=== PATIENT | male | born 1940 | race Caucasian/White ===

== ENCOUNTER 2021-07-02 08:28 | Inpatient (IN) | payer OTHER ==
[2021-07-02 09:19] LABS: Absolute Lymphocytes (CBC) 0.6 K/uL (0.7-4.9); Basophils % 0.7 % (0-1.3); Hematocrit 40.1 % (39.6-49.0); Lymphocytes % 15.9 % (15.3-44.8)
[2021-07-02 09:25] LABS: Protime INR 0.97
[2021-07-02 09:47] LABS: ALT/SGPT 28 U/L (12-78); AST/SGOT 25 U/L (15-37); Albumin 3.2 g/dL (3.4-5.0); Alkaline Phosphatase 186 U/L (45-117); BUN Blood Urea Nitrogen 16 mg/dL (7-18); Bicarbonate 32 mmol/L (21-32); Bilirubin Direct 0.2 mg/dL (0-0.2); Bilirubin Total 0.6 mg/dL (0.2-1.0); Glucose Level 103 mg/dL (74-106); Magnesium 2.1 mg/dL (1.8-2.4); NT PRO-BNP 1842 pg/mL (<450); Potassium 4.9 mmol/L (3.5-5.1); Protein, Total 7.8 g/dL (6.4-8.2); Sodium Level 141 mmol/L (136-145); Troponin (Emerg Dept Use Only) < 0.02 ng/mL (0.0-0.045)
[2021-07-02] MEDS ORDERED: FUROSEMIDE 20 MG/ 2ML VIAL ONE (10:35)
--- NOTE | 2021-07-02 11:18 | RAD REPORT ---
EXAM DESCRIPTION: Zaina Single View07/02/2021 9:59 am CLINICAL HISTORY: sob COMPARISON: none FINDINGS: Small to moderate bilateral pleural effusions. Bilateral pulmonary opacities. Cardiomegaly IMPRESSION: These findings probably represent CHF
--- NOTE | 2021-07-02 12:09 | ER ---
Nurse's Notes [facility] Name: Chalo Benitez Age: 80 yrs Sex: Male : 1940 Arrival Date: 07/02/2021 Time: 08:30 Bed 6 Private MD: Diagnosis: Pleural effusion, not elsewhere classified;Unspecified combined systolic (congestive) and diastolic (congestive) heart failure;Chronic atrial fibrillation Presentation: 07/02 08:36 Chief complaint: EMS states: [facility] toned out for SOB, rapid HR, and ll3 hyperventilation. Coronavirus screen: Vaccine status: Patient reports receiving the 2nd dose of the covid vaccine. Client denies travel out of the [place] in the last 14 days. At this time, the client does not indicate any symptoms associated with coronavirus-19. Ebola Screen: No symptoms or risks identified at this time. Initial Sepsis Screen: Does the patient meet any 2 criteria? RR > 20 per min. No. Patient's initial sepsis screen is negative. Does the patient have a suspected source of infection? No. Patient's initial sepsis screen is negative. Risk Assessment: Do you want to hurt yourself or someone else? Patient reports no desire to harm self or others. Onset of symptoms was July 02, 2021. Care prior to arrival: Oxygen administered. via nasal cannula, 2 LPM. Transition of care: patient was received from another setting of care (long-term care facility), [facility]. 08:36 Method Of Arrival: EMS: [facility] ll3 08:36 Acuity: ROSSANA 2 ll3 Triage Assessment: 08:52 General: Appears in no apparent distress. comfortable, Behavior is calm, cooperative. ll3 Pain: Denies pain. 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 - Social history:: Smoking status: Patient/guardian denies using tobacco. Screenin:51 Abuse screen: Denies threats or abuse. Nutritional screening: No deficits noted. ll3 Tuberculosis screening: No symptoms or risk factors identified. Fall Risk Fall in past 12 months (25 points). Secondary diagnosis (15 points) impaired mobility, CVA, IV access (20 points). Ambulatory Aid- Crutches/Cane/Walker (15 pts). Gait- Weak (10 pts.). Mental Status- Oriented to own ability (0 pts). Assessment: 09:00 General: SEE TRIAGE NOTE. bp 10:00 Reassessment: No changes from previously documented assessment. Patient and/or family bp updated on plan of care and expected duration. Pain level reassessed. Respiratory: Airway is patent Respiratory effort is shallow, Respiratory pattern is tachypnea. 11:00 Reassessment: No changes from previously documented assessment. Patient and/or family bp updated on plan of care and expected duration. Pain level reassessed. 11:30 Reassessment: PROVIDER AT B/S. bp Vital Signs: 08:36 BP 142 / 66; Pulse 93; Resp 32; Temp 97.6; Pulse Ox 98% on R/A; Weight 63.5 kg; Height ll3 5 ft. 11 in. (180.34 cm); 08:58 BP 138 / 76; Pulse 82; Resp 25; Pulse Ox 96% on R/A; Pain 0/10; jl7 10:00 BP 131 / 65; Pulse 81; Resp 28; Pulse Ox 97% ; bp 11:00 BP 136 / 71; Pulse 80; Resp 20; Pulse Ox 98% ; bp 13:00 BP 118 / 84; Pulse 77; Resp 19; Pulse Ox 98% ; kd3 13:55 BP 110 / 60; Pulse 88; Resp 19; Pulse Ox 97% ; kd3 08:36 Body Mass Index 19.52 (63.50 kg, 180.34 cm) ll3 ED Course: 08:30 Patient arrived in ED. em1 08:36 Vu Lerma PA is PHCP. cp 08:36 Martin De La Torre MD is Attending Physician. cp 08:44 Triage completed. ll3 08:51 Patient has correct armband on for positive identification. Fall risk band placed. ll3 Placed in gown. Bed in low position. Call light in reach. Side rails up X 1. 08:58 EKG done, by ED staff, reviewed by Vu HERNANDEZ. jl7 09:14 Jesse Aquino, RN is Primary Nurse. bp 09:59 XRAY Chest (1 view) In Process Unspecified. EDMS 12:07 Manfred Oliveira MD is Hospitalizing Provider. cp 13:55 No provider procedures requiring assistance completed. Patient admitted, IV remains in kd3 place. Administered Medications: 10:45 Drug: Lasix (furosemide) 20 mg Route: IVP; Site: right antecubital; kd3 13:17 Follow up: Response: No adverse reaction kd3 Outcome: 12:08 Decision to Hospitalize by Provider. cp 13:55 Admitted to Med/surg accompanied by tech, via wheelchair, room 202, with chart. kd3 13:55 Condition: stable 13:55 Instructed on the need for admit. 16:24 Patient left the ED. ss Signatures: Dispatcher [employer] EDMS Jacob Wayne em1 Ellie Philip RN RN ss Vu Lerma PA PA cp Ashutosh Carlos RN RN jl7 Jesse Aquino, Madhu Petit RN, RN RN ll3 Jenny Greene, RN RN kd3
--- NOTE | 2021-07-02 12:10 | EDPHYS ---
Physician Documentation [facility] Name: Chalo Benitez Age: 80 yrs Sex: Male : 1940 Arrival Date: 07/02/2021 Time: 08:30 Bed 6 Private MD: ED Physician Martin De La Torre HPI: 07/02 08:45 This 80 yrs old Male presents to ER via EMS with complaints of Shortness Of Breath. cp 08:45 The patient has shortness of breath at rest. cp 08:45 Onset: The symptoms/episode began/occurred gradually. Duration: The symptoms are cp intermittent. Associated signs and symptoms: Pertinent positives: chest pain, Pertinent negatives: fever. 08:45 Severity of symptoms: in the emergency department the symptoms have improved moderately.cp Historical: - Allergies: 08:44 Codeine; ll3 08:44 PENICILLINS; ll3 08:44 Sulfa (Sulfonamide Antibiotics); ll3 - Home Meds: 08:44 Plavix 75 mg Oral tab once daily [Active]; digoxin 125 mcg (0.125 mg) Oral tab 2 tabs ll3 once daily [Active]; Lovenox 40 mg/0.4 mL Sub-Q syrg once daily [Active]; metoprolol tartrate 25 mg Oral tab 0.5 tab once daily [Active]; mirtazapine 15 mg Oral tab once daily [Active]; omeprazole 20 mg Oral cpDR once daily [Active]; sennosides 8.6 mg oral cap [Active]; - PMHx: 08:44 COPD; Hypertensive disorder; 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 - Social history:: Smoking status: Patient/guardian denies using tobacco. ROS: 08:50 Respiratory: Positive for shortness of breath, at rest. cp 08:50 Cardiovascular: Positive for chest pain, Negative for edema, palpitations. cp 08:50 Constitutional: Negative for body aches, chills, fever, poor PO intake. cp 08:50 Abdomen/GI: Negative for abdominal pain, nausea, vomiting, and diarrhea, constipation, black/tarry stool, rectal bleeding. 08:50 Neuro: Negative for altered mental status, dizziness, headache, syncope, weakness. cp 08:50 All other systems are negative. Exam: 08:55 Constitutional: The patient appears in no acute distress, alert, awake, cp non-diaphoretic, non-toxic, well developed, well nourished. 08:55 Head/Face: Normocephalic, atraumatic. cp 08:55 Eyes: Periorbital structures: appear normal, Conjunctiva: normal, no exudate, no injection, Sclera: no appreciated abnormality, Lids and lashes: appear normal, bilaterally. 08:55 ENT: External ear(s): are unremarkable, Nose: is normal, Mouth: Lips: moist, Oral mucosa: pink and intact, moist, Posterior pharynx: Airway: no evidence of obstruction, patent. 08:55 Neck: ROM/movement: is normal, is supple, without pain, no range of motions limitations. 08:55 Chest/axilla: Inspection: normal, Palpation: is normal, no crepitus, no tenderness. 08:55 Cardiovascular: Rate: normal, Rhythm: regular, Edema: ankle edema, that is very mild, JVD: is not appreciated. 08:55 Respiratory: the patient does not display signs of respiratory distress, Respirations: normal, no use of accessory muscles, no retractions, Breath sounds: decreased breath sounds, that are moderate, are located in both bases, wheezing: is not appreciated. 08:55 Abdomen/GI: Inspection: abdomen appears normal, Palpation: abdomen is soft and non-tender, in all quadrants. 08:55 Back: pain, is absent, ROM is normal. 08:55 Skin: cellulitis, is not appreciated, no rash present. 08:55 Neuro: Orientation: to person, place \T\ time. Mentation: is normal, Motor: moves all fours, strength is normal, Sensation: is normal. 09:01 ECG was reviewed by the Attending Physician. Vital Signs: 08:36 BP 142 / 66; Pulse 93; Resp 32; Temp 97.6; Pulse Ox 98% on R/A; Weight 63.5 kg; Height ll3 5 ft. 11 in. (180.34 cm); 08:58 BP 138 / 76; Pulse 82; Resp 25; Pulse Ox 96% on R/A; Pain 0/10; jl7 10:00 BP 131 / 65; Pulse 81; Resp 28; Pulse Ox 97% ; bp 11:00 BP 136 / 71; Pulse 80; Resp 20; Pulse Ox 98% ; bp 13:00 BP 118 / 84; Pulse 77; Resp 19; Pulse Ox 98% ; kd3 13:55 BP 110 / 60; Pulse 88; Resp 19; Pulse Ox 97% ; kd3 08:36 Body Mass Index 19.52 (63.50 kg, 180.34 cm) ll3 MDM: 08:40 Patient medically screened. 11:30 Data reviewed: vital signs, nurses notes, lab test result(s), EKG, radiologic studies, cp plain films, I have discussed the patient's presentation/case with the attending Emergency Department Physician;. 11:30 Test interpretation: by ED physician or midlevel provider: ECG, plain radiologic cp studies. 11:30 Physician consultation: Manfred Oliveira MD was called at 11:30, was contacted at 11:30, regarding admission, to the telemetry unit. patient's condition. 07/02 08:42 Order name: Basic Metabolic Panel; Complete Time: 09:52 07/02 08:42 Order name: CBC with Diff; Complete Time: 09:36 07/02 09:36 Interpretation: Normal except: WBC 3.60; RBC 4.30; HGB 13.1; RDW 17.3; MPV 7.0; LYMA cp 0.6. 07/02 08:42 Order name: LFT's; Complete Time: 09:52 07/02 09:53 Interpretation: Normal except: ALK 186; ALB 3.2; GLOB 4.6; A/G 0.7. 07/02 08:42 Order name: Magnesium; Complete Time: 09:52 07/02 08:42 Order name: NT PRO-BNP; Complete Time: 09:52 07/02 11:25 Interpretation: Abnormal: NT PRO-BNP 1842. 07/02 08:42 Order name: PT-INR; Complete Time: 09:36 07/02 09:37 Interpretation: Reviewed. 07/02 08:42 Order name: Troponin (emerg Dept Use Only); Complete Time: 09:52 07/02 08:42 Order name: Digoxin; Complete Time: 09:52 07/02 11:35 Order name: SARS-COV-2 RT PCR EDMS 07/02 13:47 Order name: CKMB Creatine Kinase MB EDWA 07/02 13:47 Order name: CKMB Creatine Kinase MB EDWA 07/02 13:47 Order name: Comprehensive Metabolic Panel EDWA 07/02 13:47 Order name: Magnesium EDWA 07/02 08:42 Order name: XRAY Chest (1 view); Complete Time: 11:21 cp 07/02 08:42 Order name: EKG; Complete Time: 08:43 cp 07/02 08:42 Order name: Cardiac monitoring; Complete Time: 08:58 cp 07/02 12:01 Order name: Diet 2 Gm Sodium; Complete Time: 12:02 em1 07/02 13:47 Order name: CKMB Creatine Kinase MB EDWA 07/02 13:47 Order name: CKMB Creatine Kinase MB EDWA 07/02 13:47 Order name: Creatine Phosphokinase EDWA 07/02 13:47 Order name: Creatine Phosphokinase EDWA 07/02 13:47 Order name: Creatine Phosphokinase [facility] 07/02 13:48 Order name: Creatine Phosphokinase [facility] 07/02 13:48 Order name: Troponin I EDWA 07/02 13:48 Order name: Physical Therapy Consult EDWA 07/02 13:48 Order name: 60g Consistent Carbohydrate (ADA 1800/2000) EDWA 07/02 13:48 Order name: Echo with Doppler EDWA 07/02 13:48 Order name: CBC with Automated Diff EDWA 07/02 08:42 Order name: EKG - Nurse/Tech; Complete Time: 08:58 07/02 08:42 Order name: IV Saline Lock; Complete Time: 09:14 07/02 08:42 Order name: Labs collected and sent; Complete Time: 09:14 07/02 08:42 Order name: O2 Per Protocol; Complete Time: 08:58 cp 07/02 08:42 Order name: O2 Sat Monitoring; Complete Time: 08:58 cp EC:01 Rate is 90 beats/min. Rhythm is irregular. QRS interval is normal. QT interval is cp normal. T waves are Inverted in lead aVR. Interpreted by me. Reviewed by me. Administered Medications: 10:45 Drug: Lasix (furosemide) 20 mg Route: IVP; Site: right antecubital; kd3 13:17 Follow up: Response: No adverse reaction kd3 Disposition: 13:00 Chart complete. cp 17:23 Co-signature as Attending Physician, Martin De La Torre MD I agree with the assessment and kdr plan of care. Disposition Summary: 07/02/21 12:08 Hospitalization Ordered Hospitalization Status: Inpatient Admission cp Provider: Manfred Oliveira cp Location: Telemetry/MedSurg (Inpatient) cp Condition: Stable cp Problem: new cp Symptoms: have improved cp Bed/Room Type: Standard cp Room Assignment: 202(07/02/21 13:54) ss Diagnosis - Pleural effusion, not elsewhere classified cp - Unspecified combined systolic (congestive) and diastolic (congestive) heart failure cp - Chronic atrial fibrillation cp Forms: - Medication Reconciliation Form cp - SBAR form cp Signatures: Dispatcher [employer] EDWA Martin De La Torre MD MD [facility] Ellie Philip RN RN ss Vu Lerma PA PA cp Madhu Garcia RN RN ll3 Jenny Greene RN RN kd3 Corrections: (The following items were deleted from the chart) 11:35 08:43 CORONAVIRUS+MR.LAB.BRZ ordered. EDWA EDMS 13:54 12:08 cp ss
[2021-07-02] MEDS ORDERED: ACETAMINOPHEN 500 MG TAB PO PRN (13:29)
[2021-07-02] MEDS ORDERED: ONDANSETRON 4 MG/2 ML VIAL IV PRN (13:29)
[2021-07-02] MEDS: ALBUTEROL 2.5 MG/3 ML NEB SOL NEB SCH ×2 (14:00→19:45)
[2021-07-02] MEDS: IPRATROPIUM BROM 0.5MG/2.5ML NEB SCH ×2 (14:00→19:45)
[2021-07-02 14:27] LABS: Absolute Lymphocytes (CBC) 0.4 K/uL (0.7-4.9); Basophils % 0.6 % (0-1.3); Hematocrit 37.2 % (39.6-49.0); Lymphocytes % 8.7 % (15.3-44.8); MPV 6.8 fL (7.6-11.3); RBC Red Blood Cell Count 3.97 M/uL (4.33-5.43)
[2021-07-02] MEDS: ENOXAPARIN 40 MG/0.4 ML SQ SCH (15:00)
[2021-07-02 15:13] LABS: Creatine Phosphokinase 24 U/L (39-308); Troponin I < 0.02 ng/mL (0.0-0.045)
[2021-07-02 15:15] LABS: ALT/SGPT 26 U/L (12-78); AST/SGOT 21 U/L (15-37); Albumin 2.7 g/dL (3.4-5.0); Alkaline Phosphatase 159 U/L (45-117); BUN Blood Urea Nitrogen 16 mg/dL (7-18); Bicarbonate 33 mmol/L (21-32); Bilirubin Total 0.4 mg/dL (0.2-1.0); Glucose Level 153 mg/dL (74-106); Potassium 3.7 mmol/L (3.5-5.1); Protein, Total 6.8 g/dL (6.4-8.2); Sodium Level 141 mmol/L (136-145)
--- NOTE | 2021-07-02 15:27 | HP ---
Date of Admission: 07/02/2021 Reason For Admission: Progressive shortness of breath. History Of Present Illness: This is an 80-year-old gentleman with history of COPD/tobacco abuse, pre sented to the emergency room from longterm with progressive shortness of breath. This started th is morning. The patient denies any cough, sore throat. There was no fever or chills, night sweats. The patient was very tachycardic in the ER. Chest x-ray done showed volume overload with signs of c ongestive heart failure. Labs showed a mild anemia with elevated BNP at 1842. The patient was found to have history of CHF, started on Lasix and admitted for further evaluation. , but he lo oks comfortable. He has no chest pain or abdominal pain. No fever or chills. Past Medical History: Significant for hypertension, carotid artery stenosis, atrial fibrillation, GE RD, stroke. Past Surgical History: Significant for none according to the patient. Allergies: TO SULFA, CODEINE AND PENICILLIN. Home Medications: Plavix 75 mg once a day, digoxin mcg daily 2 tablets a day, subcutaneous, metoprolol 25 mg half tablet once a day. Mirtazapine 15 mg orally. Omeprazole 20 mg o rally. Senokot as needed. Social History: He is . He has 3 kids, all . He lives in longterm. Does not drink, smoke, or use any drugs. Family History: Father of unknown etiology. Mother when the patient was 1-year-old. Review of Systems: Denies any fever, chills, night sweats, dizziness, lightheaded, headache, blurred vision. There is n o change in weight or appetite. He has shortness of breath, but there is no cough or sore throat. T here is no nausea, vomiting, abdominal pain, change in bowel movement, diarrhea, constipation, dysuri a, frequency, urgency, hematuria. There is no history of depression, anxiety, seizure or stroke. Physical Examination: Vital Signs: Currently blood pressure is 142/66, respiratory rate 20, pulse 80, temperature 97.6, sa turating 98% on room air. General: He is alert and oriented x3. Does not look in any distress. HEENT: Atraumatic, normocephalic. PERRLA. Oral mucosa is moist. Neck: Supple. No JVD. No carotid bruits. Chest: Clear to auscultation. Good air entry. There is some expiratory wheezing with crackles in t he bases. Heart: Regular rate and rhythm. S1, S2 normal. No gallop, rub or murmur. Abdomen: Soft, nontender. No masses. No hepatosplenomegaly. Positive bowel sounds. Extremities: No clubbing, cyanosis, or edema. No calf tenderness. Neurologic: Grossly intact. Cranial nerve exam 2 through 12 intact. Normal sensation. Normal refl exes. Normal muscle strength. Laboratory Data: Today showed CBC was normal except for mild anemia with hemoglobin 13.1, white bloo d cell 3.6. Chemistry within normal except for alkaline phosphatase 186. BNP of 1842, albumin 3.2. Assessment And Plan: This is an 80-year-old gentleman with history of multiple medical problems, pre sented to the emergency room with progressive shortness of breath, found to have signs of congestive heart failure on the chest x-ray with elevated BNP. 1.CHF ? new onset. We will proceed with echocardiogram. We will continue the patient on Lasix 40 m g twice a day. We will consult Cardiology. Resume the patient's home medication with Plavix, metopr olol and digoxin. We will check cardiac enzymes. 2.Chronic obstructive pulmonary disease history ? chronic obstructive pulmonary disease exacerbation . We will start the patient on steroid, prednisone 60 mg once a day, nebulizer as well as Levaquin 5 00 mg daily for presumed chronic obstructive pulmonary disease exacerbation. 3.History of vascular disease. We will continue the patient on Plavix. 4.We will look at echocardiogram given the possibility of new onset of congestive heart failure. 5.History of cerebrovascular accident. The patient is already on Plavix. We will continue. 6.We will continue omeprazole for acid reflux. 7.Insomnia. We will continue the patient on mirtazapine. FRANCISCO/NINI Voice ID: [id number]
[2021-07-02] MEDS: levoFLOXacin 500 MG TAB PO SCH (18:01)
[2021-07-02] MEDS: FUROSEMIDE 40 MG TABLET PO SCH (18:02)
[2021-07-02] MEDS ORDERED: predniSONE 20 MG TAB PO ONE (19:26)
[2021-07-02] MEDS: METOPROLOL TAR 25 MG TAB PO SCH (20:41)
[2021-07-02 22:13] LABS: CKMB Creatine Kinase MB 1.5 ng/mL (1.0-3.6)
[2021-07-03] MEDS: IPRATROPIUM BROM 0.5MG/2.5ML NEB SCH ×4 (01:40→20:00)
[2021-07-03] MEDS: ALBUTEROL 2.5 MG/3 ML NEB SOL NEB SCH ×4 (01:40→20:00)
[2021-07-03 07:37] LABS: CKMB Creatine Kinase MB 1.4 ng/mL (1.0-3.6)
[2021-07-03] MEDS: ENOXAPARIN 40 MG/0.4 ML SQ SCH (08:29)
[2021-07-03] MEDS: ASPIRIN EC 81 MG TAB PO SCH (08:29)
[2021-07-03] MEDS: FUROSEMIDE 40 MG TABLET PO SCH (08:30)
[2021-07-03] MEDS: levoFLOXacin 500 MG TAB PO SCH (08:30)
[2021-07-03] MEDS: METOPROLOL TAR 25 MG TAB PO SCH (08:30)
[2021-07-03] MEDS ORDERED: CLOPIDOGREL 75 MG TABLET PO SCH (09:00)
[2021-07-03] MEDS ORDERED: PNEUMOCOCCAL VACCINE 0.5 ML IMVAC ONE (09:00)
--- NOTE | 2021-07-03 11:46 | P.PN ---
Subjective Date of Service: 07/03/21 Not feeling well this am, tired weak, fatigue poor energy, nl BM, no fever or chills but having dizziness, daughter at the bedside Physical Examination - Vital Signs Temperature: 97 F Blood Pressure: 113/49 Pulse: 76 Respirations: 18 Pulse Ox (%): 96 - Studies Laboratory Data (last 24 hrs) 07/02/21 14:22: Sodium 141, Potassium 3.7, BUN 16, Creatinine 0.61, Glucose 153 H, Magnesium 2.0, Total Bilirubin 0.4, AST 21, ALT 26, Alkaline Phosphatase 159 H 07/02/21 14:22: WBC 4.90 D, Hgb 12.3 L, Hct 37.2 L, Plt Count 272 07/02/21 14:22: Troponin I < 0.02 Assessment & Plan Physician Review Additional Text: GENERAL: The patient is a cachectic in no apparent distress. Alert and oriented x3. VITAL SIGNS: Reviewed HEENT: Head is normocephalic and atraumatic. Extraocular muscles are intact. Pupils are equal, round, and reactive to light and accommodation. Mouth is well hydrated and without lesions. Mucous membranes are moist. NECK: Supple. No carotid bruits. No lymphadenopathy or thyromegaly. LUNGS: Clear to auscultation. No crackles or wheezes are heard. HEART: Regular rate and rhythm, no appreciable gallops, rubs, murmurs or extra heart sounds ABDOMEN: Soft, non tender, and non distended. Positive bowel sounds. No hepatosplenomegaly was noted. EXTREMITIES: Without any cyanosis, clubbing, rash, lesions or peripheral edema.+ diffuse bruising NEUROLOGIC: The patient is oriented to person, place and time. Strength and sensation are grossly intact. Face is symmetric. SKIN: Normal color, turgor and temperature. No ulcerations or rashes noted. Assesment and plan New onset CHF on CXR -Cont lasix breathing better, repeat BNP and CXR in am, Echo pending monday, Cardiology consult pending this am Cardiac enzyme were neg COPD hx ? exac -cont Steroids wtih empric levquain and inhalers Anemia -mild obs DVT prophylaxis -Lovenox Mental status changes -daughter concern about MS lastely before admission, advised to discuss with PCP consider neurology eval to r /o dementia
--- NOTE | 2021-07-03 15:30 | CON ---
Date of Consultation: 07/03/2021 Reason For Consultation: Heart failure. History Of Present Illness: This is an 80-year-old male with history of COPD and ongoing tobacco use , who presented with worsening shortness of breath and orthopnea, mild lower extremity edema. Since hospitalization, he was given Lasix IV. The patient is feeling better. Denies having any cough. No chest pain. Past Medical History: Hypertension, carotid stenosis, history of atrial fibrillation, history of KENNEL AIDE D, CVA, and smoker. Medications: Refer reconciliation sheet for detailed list. Allergies: CODEINE, SULFA, AND PENICILLIN. Social History: He is a smoker. Does not drink or use drugs. Review of Systems: All systems reviewed and they were negative except as mentioned in the HPI. Physical Examination: Vital Signs: Reviewed. Temperature is 98.2, pulse 73, breathing 18, blood pressure is 111/49, satur ating 100%. General: Pleasant elderly male, in no apparent distress. Head and Neck: Pupils are equal, reactive to light. Intact eye movements. No JVD. No cervical cooper nopathy. Neck is supple. Thyroid is not enlarged. Lungs: Clear to auscultation bilaterally. No rhonchi, rales, or crackles. No accessory muscle use. Heart: Regular rate and rhythm. No extra sounds. Abdomen: Soft, nontender. Bowel sounds positive. No organomegaly. No masses or hernia. No rigidi ty or rebound. Extremities: Trace edema bilaterally, worse on the right. No clubbing, cyanosis. Intact pulses. Skin: No rashes. Neurologic: Alert, awake, oriented x3. No acute focal deficits appreciated. Investigations: Hemoglobin 12.3, white blood count 4.9. The sodium 141, BUN 16, creatinine 0.61. H is troponin is 0.02. His NT-proBNP was 1842. On admission, chest x-ray showed a small to moderate b ilateral pleural effusion and also a CHF pattern. Assessment And Recommendation: 1.Shortness of breath, elevated NT-proBNP. Definitely there is a component of congestive heart fail ure that is not diagnosed. I would agree with IV Lasix. Monitor BUN, creatinine, electrolytes, and also obtain an echocardiogram. 2.Significant bilateral pleural effusion. Recommend CT chest to further evaluate this after proper diuresis may be on Monday and I will follow the patient with you. Thank you for the consult. SR/MODL Voice ID: [id number] Report ID: [id number]
[2021-07-03] MEDS: FUROSEMIDE 20 MG TABLET PO SCH (16:46)
[2021-07-03] MEDS: JUVEN PACKET PO SCH (20:59)
[2021-07-03] MEDS: ENSURE ENLIVE 237 ML CAN PO SCH (20:59)
[2021-07-03] MEDS: METOPROLOL TAR 50 MG TAB PO SCH (21:00)
[2021-07-04] MEDS: ALBUTEROL 2.5 MG/3 ML NEB SOL NEB SCH ×4 (02:00→20:00)
[2021-07-04] MEDS: IPRATROPIUM BROM 0.5MG/2.5ML NEB SCH ×4 (02:00→20:00)
[2021-07-04 05:33] LABS: Absolute Lymphocytes (CBC) 0.8 K/uL (0.7-4.9); Basophils % 0.8 % (0-1.3); Hematocrit 34.2 % (39.6-49.0); Lymphocytes % 18.8 % (15.3-44.8); MPV 6.9 fL (7.6-11.3); RBC Red Blood Cell Count 3.66 M/uL (4.33-5.43)
[2021-07-04 05:54] LABS: ALT/SGPT 34 U/L (12-78); AST/SGOT 33 U/L (15-37); Albumin 2.4 g/dL (3.4-5.0); Alkaline Phosphatase 159 U/L (45-117); BUN Blood Urea Nitrogen 25 mg/dL (7-18); Bicarbonate 33 mmol/L (21-32); Bilirubin Total 0.3 mg/dL (0.2-1.0); Glucose Level 99 mg/dL (74-106); Potassium 3.4 mmol/L (3.5-5.1); Protein, Total 6.1 g/dL (6.4-8.2); Sodium Level 143 mmol/L (136-145)
[2021-07-04 06:23] LABS: Platelet Estimate ADEQ
[2021-07-04 06:24] LABS: Blood Morphology Comment NOT SEEN (NOT SEEN); Platelets, Giant OCC
[2021-07-04] MEDS ORDERED: POTASSIUM 25 MEQ EFFERV TAB PO ONE (06:51)
[2021-07-04] MEDS: levoFLOXacin 500 MG TAB PO SCH (09:06)
[2021-07-04] MEDS: PANTOPRAZOLE 40MG TABLET PO SCH (09:06)
[2021-07-04] MEDS: METOPROLOL TAR 50 MG TAB PO SCH ×2 (09:06→21:00)
[2021-07-04] MEDS: FUROSEMIDE 20 MG TABLET PO SCH ×2 (09:07→16:59)
[2021-07-04] MEDS: ASPIRIN EC 81 MG TAB PO SCH (09:07)
[2021-07-04] MEDS: ENOXAPARIN 40 MG/0.4 ML SQ SCH (09:07)
[2021-07-04] MEDS: CLOPIDOGREL 75 MG TABLET PO SCH (09:07)
[2021-07-04] MEDS: JUVEN PACKET PO SCH ×2 (09:08→21:51)
[2021-07-04] MEDS: ENSURE ENLIVE 237 ML CAN PO SCH ×2 (09:08→21:00)
--- NOTE | 2021-07-04 09:37 | P.PN ---
Subjective Date of Service: 07/04/21 Not feeling well this am, tired weak, still dizzy could not participate in PT yesterday due to orthostatic BP, no fever or chills , average appetite Physical Examination - Vital Signs Temperature: 97.5 F Blood Pressure: 113/64 Pulse: 88 Respirations: 16 Pulse Ox (%): 100 Assessment & Plan Physician Review Additional Text: GENERAL: The patient is a cachectic in no apparent distress. Alert and oriented x3. VITAL SIGNS: Reviewed HEENT: Head is normocephalic and atraumatic. Extraocular muscles are intact. Pupils are equal, round, and reactive to light and accommodation. Mouth is well hydrated and without lesions. Mucous membranes are moist. NECK: Supple. No carotid bruits. No lymphadenopathy or thyromegaly. LUNGS: Clear to auscultation. fine crackles at the base HEART: Regular rate and rhythm, no appreciable gallops, rubs, murmurs or extra heart sounds ABDOMEN: Soft, non tender, and non distended. Positive bowel sounds. No hepatosplenomegaly was noted. EXTREMITIES: Without any cyanosis, clubbing, rash, lesions or peripheral edema.+ diffuse bruising NEUROLOGIC: The patient is oriented to person, place and time. Strength and sensation are grossly intact. Face is symmetric. SKIN: Normal color, turgor and temperature. No ulcerations or rashes noted.+ bruising Assesment and plan New onset CHF on CXR -Cont lasix orally breathing better , BUN trending up, BNP down to 900 from 1800, and CXR this AM Pending, Echo pending monday, Cardiology consult noted yesterday Cardiac enzyme were neg Nam Pleural effusion -CHF vs ? will proceed with CT chest in am per cardio recommendation COPD hx ? exac -cont Steroids , will taper down since pt breathing much better today, cont with empiric levquain and inhalers Orthostatic hypoention -will add low dose of florinef Anemia -mild obs, slightly worse DVT prophylaxis -Lovenox Mental status changes -daughter concern about MS lastely before admission, advised to discuss with PCP consider neurology eval to r /o dementia DC PLAN pending Echo and CT in am, PT recommendation regarding rehab vs home
[2021-07-04] MEDS ORDERED: KCL 20 MEQ/100 mL IVPB 20 MEQ/100 ML BAG IV SCH (10:00)
[2021-07-04] MEDS: FLUDROCORTISONE 0.1 MG TAB PO SCH (10:00)
[2021-07-04] MEDS: predniSONE 20 MG TAB PO SCH ×2 (11:27→21:47)
--- NOTE | 2021-07-04 13:40 | PN ---
Date of Progress Note: 07/04/2021 Subjective: Seen at bedside. He is doing better. No distress. Review of Systems: No chest pain. Minimal shortness of breath with activities. No nausea, vomiting, diarrhea. No abdo veda pain. No dysuria, polyuria, or urinary urgency. All other systems were reviewed and are negat jayson. Physical Examination: Vital Signs: Temperature is 97.7, pulse 85, breathing at 18, blood pressure is 100/57, saturating 98 %. General: Pleasant elderly male, in no distress. Head and Neck: Pupils are equal, reactive to light. Intact eye movements. No JVD. No cervical lym phadenopathy. Neck: Supple. Thyroid is not enlarged. Lungs: Rhonchi bilaterally. No accessory muscle use or muscle retraction. Heart: Irregularly irregular. No extra sounds. Abdomen: Soft, nontender. Bowel sounds positive. No organomegaly. No masses or hernia. No rigidi ty or rebound. Extremities: No clubbing, cyanosis. Intact pulses. Skin: No rash. Neurologic: Alert, awake, oriented x3. No acute focal deficits appreciated. Investigations: White blood cell count is 4.5, hemoglobin is 11.4, creatinine 0.4. Assessment And Recommendations: 1.Acute congestive heart failure. Cardiac enzymes were negative. Await on echocardiogram to plan t his patient's care. Meanwhile, he has diuresed very well and agree of switching Lasix to orally. 2.Atrial fibrillation. Rate is controlled. We will evaluate the echocardiogram. If there is a rene p in the ejection fraction, this could be atrial fibrillation related, then I would recommend antiarr hythmic medications like amiodarone. Meanwhile, continue beta-rita. The patient will require lion e sort of anticoagulation due to high risk of stroke; however, it looks like he has taken Plavix and it is not clear the reason behind it and the patient is a poor historian, could be due to the history of cerebrovascular accident. If the patient indeed had a history of cerebrovascular accident in the past, anticoagulation will be recommended. Try to obtain history on him if there is no history of r ecent stent placement, then I will replace the Plavix with Eliquis and have the patient fully anticoa gulated. 3.Bilateral pleural effusions. Await on CT scan to further assess the need for pleurocentesis. SR/MODL Voice ID: [id number] Report ID: [id number]
--- NOTE | 2021-07-04 13:47 | RAD REPORT ---
EXAM DESCRIPTION: RAD - Chest Single View - 07/04/2021 6:07 am CLINICAL HISTORY: chf Chest pain. COMPARISON: Chest Single View dated 07/02/2021 FINDINGS: Portable technique limits examination quality. Mild to moderate bilateral pulmonary edema pattern with bilateral pleural effusions again noted, unch anged. The heart is moderately enlarged in size. No displaced fractures. IMPRESSION: No significant change in moderate CHF pattern.
[2021-07-04 16:57] VITALS: BMI 19.3
[2021-07-05] MEDS: IPRATROPIUM BROM 0.5MG/2.5ML NEB SCH ×4 (02:30→20:00)
[2021-07-05] MEDS: ALBUTEROL 2.5 MG/3 ML NEB SOL NEB SCH ×4 (02:30→20:00)
--- NOTE | 2021-07-05 09:45 | RAD REPORT ---
EXAM DESCRIPTION: CT - Thorax W/ Con - 07/05/2021 9:05 am CLINICAL HISTORY: violet pleural effusion COMPARISON: Chest Single View dated 07/04/2021 TECHNIQUE: Dynamically enhanced 5 mm thick images of the chest were obtained during administration o f 100 mL non-ionic IV contrast. All CT scans are performed using dose optimization technique as appropriate and may include automated exposure control or mA/KV adjustment according to patient size. FINDINGS: Underlying fibro emphysematous lung changes are present with moderate severity subpleural fibrotic change in the each upper lobe. No upper lobe consolidation or mass lesions seen. Bilateral p leural effusions are present with partial atelectasis of each lower lobe. There is very minimal right middle lobe atelectasis. Pleural thickening and pleural calcifications are present without a pleural based mass identified. Pleural effusions are moderate in size and slightly larger on the left. There is some evidence for loculation. No pneumothorax. No chest wall mass or abnormal axillary lymphadeno gio. No abnormal mediastinal or hilar mass or lymphadenopathy seen. No endobronchial lesion. IMPRESSION: Moderate-sized bilateral pleural effusions slightly larger on the left. There is partial atelectasis of each lower lobe without an underlying mass lesion identifiable. Pleural thickening and pleural calcifications are present without a pleural based mass. There is susp icion for loculation of the pleural effusions. Decubitus films could be obtained as warranted.
[2021-07-05] MEDS: JUVEN PACKET PO SCH ×2 (09:57→20:39)
[2021-07-05] MEDS: levoFLOXacin 500 MG TAB PO SCH (09:57)
[2021-07-05] MEDS: PANTOPRAZOLE 40MG TABLET PO SCH (09:57)
[2021-07-05] MEDS: ASPIRIN EC 81 MG TAB PO SCH (09:57)
[2021-07-05] MEDS: ENSURE ENLIVE 237 ML CAN PO SCH ×2 (09:57→20:39)
[2021-07-05] MEDS: CLOPIDOGREL 75 MG TABLET PO SCH (09:57)
[2021-07-05] MEDS: predniSONE 20 MG TAB PO SCH ×2 (09:58→20:33)
[2021-07-05] MEDS: FLUDROCORTISONE 0.1 MG TAB PO SCH (09:58)
[2021-07-05] MEDS: FUROSEMIDE 20 MG TABLET PO SCH ×2 (09:58→16:39)
[2021-07-05] MEDS: METOPROLOL TAR 50 MG TAB PO SCH ×2 (09:58→20:33)
[2021-07-05] MEDS: ENOXAPARIN 40 MG/0.4 ML SQ SCH (10:03)
--- NOTE | 2021-07-05 14:59 | ECHO ---
HEIGHT: 5 ft 11 in WEIGHT: 139 lb 0 oz DATE OF STUDY: 07/05/[address]: Manfred Oliveira MD 2-DIMENSIONAL: YES M.MODE: YES DOPPLER: YES COLOR FLOW: YES TDS: NO PORTABLE: NO DEFINITY: NO BUBBLE STUDY: NO DIAGNOSIS: CONGESTIVE HEART FAILURE CARDIAC HISTORY: CATHERIZATION: NO SURGERY: NO PROSTHETIC VALVE: NO PACEMAKER: NO MEASUREMENTS (cm) DIASTOLIC (NORMALS) SYSTOLIC (NORMALS) IVSd 1.0 (0.6-1.2) LA Diam 2.6 (1.9-4.0) LVEF 59% LVIDd 3.7 (3.5-5.7) LVIDs 2.5 (2.0-3.5) %FS 31% LVPWd 1.1 (0.6-1.2) Ao Diam 2.8 (2.0-3.7) 2 DIMENSIONAL ASSESSMENT: RIGHT ATRIUM: NORMAL LEFT ATRIUM: NORMAL RIGHT VENTRICLE: NORMAL LEFT VENTRICLE: NORMAL TRICUSPID VALVE: MITRAL VALVE: NORMAL PULMONIC VALVE: NORMAL AORTIC VALVE: PERICARDIAL EFFUSION: NONE AORTIC ROOT: NORMAL LEFT VENTRICULAR WALL MOTION: NORMAL DOPPLER/COLOR FLOW: SEE BELOW COMMENTS: NORMAL LEFT VENTRICULAR EJECTION FRACTION 55-60% WITH NORMAL WALL MOTION. MILD TRICUSPID AND AORTIC REGURGITATION. RIGHT VENTRICULAR SYSTOLIC PRESSURE OF 40 mmHg PLUS RIGHT ATRIAL PRESSURE. TECHNOLOGIST: Cooper STOLL
[2021-07-06] MEDS: IPRATROPIUM BROM 0.5MG/2.5ML NEB SCH ×4 (02:00→19:25)
[2021-07-06] MEDS: ALBUTEROL 2.5 MG/3 ML NEB SOL NEB SCH ×4 (02:00→19:25)
[2021-07-06] MEDS: FLUDROCORTISONE 0.1 MG TAB PO SCH (08:50)
[2021-07-06] MEDS: PANTOPRAZOLE 40MG TABLET PO SCH (08:50)
[2021-07-06] MEDS: ASPIRIN EC 81 MG TAB PO SCH (08:50)
[2021-07-06] MEDS: levoFLOXacin 500 MG TAB PO SCH (08:50)
[2021-07-06] MEDS: METOPROLOL TAR 50 MG TAB PO SCH ×2 (08:50→21:00)
[2021-07-06] MEDS: ENOXAPARIN 40 MG/0.4 ML SQ SCH (08:50)
[2021-07-06] MEDS: CLOPIDOGREL 75 MG TABLET PO SCH (08:50)
[2021-07-06] MEDS: FUROSEMIDE 20 MG TABLET PO SCH ×2 (08:51→16:24)
[2021-07-06] MEDS: ENSURE ENLIVE 237 ML CAN PO SCH ×2 (08:52→21:03)
[2021-07-06] MEDS: JUVEN PACKET PO SCH ×2 (08:52→21:03)
[2021-07-06] MEDS: predniSONE 20 MG TAB PO SCH ×2 (08:52→20:58)
[2021-07-07] MEDS: IPRATROPIUM BROM 0.5MG/2.5ML NEB SCH ×4 (01:15→20:10)
[2021-07-07] MEDS: ALBUTEROL 2.5 MG/3 ML NEB SOL NEB SCH ×4 (01:15→20:10)
[2021-07-07] MEDS: levoFLOXacin 500 MG TAB PO SCH (08:36)
[2021-07-07] MEDS: ASPIRIN EC 81 MG TAB PO SCH (08:36)
[2021-07-07] MEDS: PANTOPRAZOLE 40MG TABLET PO SCH (08:37)
[2021-07-07] MEDS: FUROSEMIDE 20 MG TABLET PO SCH ×2 (08:37→17:15)
[2021-07-07] MEDS: ENOXAPARIN 40 MG/0.4 ML SQ SCH (08:38)
[2021-07-07] MEDS: CLOPIDOGREL 75 MG TABLET PO SCH (08:38)
[2021-07-07] MEDS: METOPROLOL TAR 50 MG TAB PO SCH ×2 (08:38→20:30)
[2021-07-07] MEDS: FLUDROCORTISONE 0.1 MG TAB PO SCH (08:39)
[2021-07-07] MEDS: ENSURE ENLIVE 237 ML CAN PO SCH ×2 (08:39→20:31)
[2021-07-07] MEDS: predniSONE 20 MG TAB PO SCH ×2 (08:39→20:30)
[2021-07-07] MEDS: JUVEN PACKET PO SCH ×2 (08:40→20:31)
--- NOTE | 2021-07-07 10:32 | P.PN ---
Subjective Date of Service: 07/05/21 Patient is feeling better. However, patient still short of breath. Still having a hard time ambulating. Therapy has been working with patient but patient is still real weak. Review of Systems 10-point ROS is otherwise unremarkable Physical Examination - Vital Signs Temperature: 97.3 F Blood Pressure: 125/67 Pulse: 87 Respirations: 18 Pulse Ox (%): 97 - Physical Exam General: Alert, In no apparent distress, Oriented x3 HEENT: Atraumatic, PERRLA, EOMI Neck: Supple, JVD not distended Respiratory: Diminished, Crackles/rales Cardiovascular: Regular rate/rhythm, Normal S1 S2, No murmurs Gastrointestinal: Normal bowel sounds, Soft and benign, Non-distended, No tenderness Musculoskeletal: No clubbing, No tenderness, Swelling Neurological: Sensation intact, Cranial nerves 3-12 intact, Abnormal gait, Abnormal strength Lymphatics: No axilla or inguinal lymphadenopathy - Studies Medications List Reviewed: Yes Assessment & Plan - Problems (Diagnosis) (1) Bilateral pleural effusion Current Visit: Yes Status: Acute (2) Shortness of breath Current Visit: Yes Status: Acute (3) Generalized weakness Current Visit: Yes Status: Acute - Plan 1. Echocardiogram pending 2. CT results pending 3. Continue with gentle diuresing 4. Cardiology consultation appreciated 5. Physical therapy 6. Strict I's and O's 7. Repeat CXR 8. Daily weights 9. Education regarding diet and treatment of congestive heart failure Discharge Plan: Home Plan to discharge in: Greater than 2 days - Advance Directives Does patient have a Living Will: No Does patient have a Durable POA for Healthcare: No - Code Status/Comfort Care Code Status Assessed: Yes Code Status: Full Code Critical Care: No Time Spent Managing PTS Care (In Minutes): 25
--- NOTE | 2021-07-07 10:35 | P.PN ---
Date of Service: 07/07/21 Subjective Review of Systems 10-point ROS is otherwise unremarkable Physical Examination - Vital Signs Reviewed - Physical Exam General: Alert, In no apparent distress, Oriented x3 Respiratory: Diminished, Crackles/rales Cardiovascular: Regular rate/rhythm, Normal S1 S2, No murmurs Gastrointestinal: Normal bowel sounds, Soft and benign, Non-distended, No tenderness Musculoskeletal: No clubbing, No tenderness, Swelling Neurological: Sensation intact, Cranial nerves 3-12 intact, Abnormal gait, Abnormal strength Assessment & Plan - Problems (Diagnosis) (1) Bilateral pleural effusion secondary to acute CHF, diastolic dysfunction Current Visit: Yes Status: Acute (2) Shortness of breath Current Visit: Yes Status: Acute (3) Generalized weakness Current Visit: Yes Status: Acute - Plan Continue with plan of care as mentioned below: 1. Echocardiogram performed and elevated right-sided heart pressures 2. CT result shows bilateral pleural effusion. Lateral decubitus films recommended 3. Pulmonary consultation pending 4. Cardiology consultation appreciated 5. continue Physical therapy 6. Strict I's and O's 7. Repeat CXR 8. Daily weights 9. Education regarding diet and treatment of congestive heart failure Discharge Plan: Home Plan to discharge in: Greater than 2 days - Advance Directives Does patient have a Living Will: No Does patient have a Durable POA for Healthcare: No - Code Status/Comfort Care Code Status Assessed: Yes Code Status: Full Code Critical Care: No Time Spent Managing PTS Care (In Minutes): 25
--- NOTE | 2021-07-07 10:35 | P.PN ---
Date of Service: 07/06/21 Subjective Patient still really weak. Patient still has not participated well with therapy. CT scan shows bilateral pleural effusion. Most likely etiology of shortness of breath. May need thoracentesis to diagnose but will get lateral decubitus to make sure patient's fluid is not loculated Review of Systems 10-point ROS is otherwise unremarkable Physical Examination - Vital Signs Reviewed - Physical Exam General: Alert, In no apparent distress, Oriented x3 Respiratory: Diminished, Crackles/rales Cardiovascular: Regular rate/rhythm, Normal S1 S2, No murmurs Gastrointestinal: Normal bowel sounds, Soft and benign, Non-distended, No tenderness Musculoskeletal: No clubbing, No tenderness, Swelling Neurological: Sensation intact, Cranial nerves 3-12 intact, Abnormal gait, Abnormal strength Assessment & Plan - Problems (Diagnosis) (1) Bilateral pleural effusion Current Visit: Yes Status: Acute (2) Shortness of breath Current Visit: Yes Status: Acute (3) Generalized weakness Current Visit: Yes Status: Acute - Plan Continue with plan of care as mentioned below: 1. Echocardiogram performed and elevated right-sided heart pressures 2. CT result shows bilateral pleural effusion. Lateral decubitus films recommended 3. Pulmonary consultation pending 4. Cardiology consultation appreciated 5. continue Physical therapy 6. Strict I's and O's 7. Repeat CXR 8. Daily weights 9. Education regarding diet and treatment of congestive heart failure Discharge Plan: Home Plan to discharge in: Greater than 2 days - Advance Directives Does patient have a Living Will: No Does patient have a Durable POA for Healthcare: No - Code Status/Comfort Care Code Status Assessed: Yes Code Status: Full Code Critical Care: No Time Spent Managing PTS Care (In Minutes): 25
[2021-07-07 11:42] LABS: Absolute Lymphocytes (CBC) 0.5 K/uL (0.7-4.9); Basophils % 0.1 % (0-1.3); Hematocrit 34.2 % (39.6-49.0); Lymphocytes % 6.7 % (15.3-44.8); MPV 7.2 fL (7.6-11.3); RBC Red Blood Cell Count 3.62 M/uL (4.33-5.43)
[2021-07-07 12:24] LABS: BUN Blood Urea Nitrogen 36 mg/dL (7-18); Bicarbonate 32 mmol/L (21-32); Folic Acid, (Folate) 9.4 ng/mL (3.1-17.5); Glucose Level 118 mg/dL (74-106); Magnesium 1.9 mg/dL (1.8-2.4); Potassium 3.2 mmol/L (3.5-5.1); Sodium Level 144 mmol/L (136-145)
--- NOTE | 2021-07-07 12:35 | P.CNS ---
Date of Consult: 07/07/21 Reason for Consult: Congestive heart failure pulmonary hypertension Chief Complaint: Shortness of breath History of Present Illness: Patient is 80 years of age admitted with shortness of breath diagnosed with congestive heart failure he is doing much better he is an active smoker uses inhalers on a as needed basis Allergies codeine Allergy (Verified 07/02/21 15:06) Rash Penicillins Allergy (Verified 07/02/21 15:06) Rash Sulfa (Sulfonamide Antibiotics) Allergy (Verified 07/02/21 15:06) Rash Home Medications: Clopidogrel Bisulfate [Plavix] 75 mg PO DAILY 07/02/21 Furosemide [Lasix] 20 mg PO BIDL 07/02/21 Lisinopril/Hydrochlorothiazide [Lisinopril-Hctz 10-12.5 mg Tab] 1 each PO DAILY 07/02/21 Metoprolol Tartrate [Lopressor] 50 mg PO BID 07/02/21 Pantoprazole [Protonix Tab] 40 mg PO DAILY 07/02/21 - Past Medical/Surgical History -: Hypertension -: Carotid artery stenosis -: History of stroke - Social History Smoking Status: Current every day smoker, Current some day smoker Alcohol use: Yes CD- Drugs: No Caffeine use: Yes Review of Systems 10-point ROS is otherwise unremarkable Respiratory: Shortness of Breath Physical Examination Temp Pulse Resp BP Pulse Ox 98.1 F 89 16 122/60 99 07/07/21 11:57 07/07/21 11:57 07/07/21 11:57 07/07/21 11:57 07/07/21 11:57 General: Alert, In no apparent distress, Oriented x3 Cardiovascular: No edema, Irregular heart rate/rhythm - Problems (1) Congestive heart failure Current Visit: Yes Status: Acute Plan: Patient is 80 years of age admitted with congestive heart failure bilateral pleural effusion mild pulmonary hypertension saturation is satisfactory he is also an active smoker only has underlying COPD chest x-ray is consistent with COPD has bilateral pleural effusion normal left ventricular ejection fraction slightly underlying severe diastolic blood pressures adequately controlled probably benefit from continued use of a bronchodilator not qualify for home O2 plan for discharge follow-up with me as an outpatient need outpatient pulmonary function test labs reviewed mild hypokalemia no treatment for pulmonary hypertension right now
[2021-07-07] MEDS ORDERED: POTASSIUM CL SA 10 MEQ TAB PO ONE (12:52)
[2021-07-08] MEDS: IPRATROPIUM BROM 0.5MG/2.5ML NEB SCH ×4 (01:35→19:20)
[2021-07-08] MEDS: ALBUTEROL 2.5 MG/3 ML NEB SOL NEB SCH ×4 (01:35→19:20)
[2021-07-08] MEDS: ENOXAPARIN 40 MG/0.4 ML SQ SCH (09:18)
[2021-07-08] MEDS: CLOPIDOGREL 75 MG TABLET PO SCH (09:19)
[2021-07-08] MEDS: ASPIRIN EC 81 MG TAB PO SCH (09:19)
[2021-07-08] MEDS: levoFLOXacin 500 MG TAB PO SCH (09:19)
[2021-07-08] MEDS: FLUDROCORTISONE 0.1 MG TAB PO SCH (09:19)
[2021-07-08] MEDS: METOPROLOL TAR 50 MG TAB PO SCH ×2 (09:20→20:02)
[2021-07-08] MEDS: PANTOPRAZOLE 40MG TABLET PO SCH (09:20)
[2021-07-08] MEDS: predniSONE 20 MG TAB PO SCH ×2 (09:24→20:03)
[2021-07-08] MEDS: FUROSEMIDE 20 MG TABLET PO SCH ×2 (09:24→17:24)
[2021-07-08] MEDS: ENSURE ENLIVE 237 ML CAN PO SCH ×2 (09:25→20:02)
[2021-07-08] MEDS: JUVEN PACKET PO SCH ×2 (09:25→20:01)
--- NOTE | 2021-07-08 14:52 | RAD REPORT ---
EXAM DESCRIPTION: RAD - Chest Lateral Decubitus - 07/08/2021 1:37 pm CLINICAL HISTORY: Pleural effusion COMPARISON: Thorax W/ Con dated 07/05/2021; Chest Single View dated 07/02/2021 FINDINGS: The bilateral pleural effusions do not appear to be entirely free-flowing on the decubitus radiographs. IMPRESSION: Bilateral pleural effusions of which only a small volume appears to be free-flowing whic h would indicate predominantly loculated effusions.
[2021-07-09] MEDS: ALBUTEROL 2.5 MG/3 ML NEB SOL NEB SCH ×3 (02:00→13:45)
[2021-07-09] MEDS: IPRATROPIUM BROM 0.5MG/2.5ML NEB SCH ×3 (02:00→13:45)
[2021-07-09] MEDS: ENSURE ENLIVE 237 ML CAN PO SCH (09:00)
[2021-07-09] MEDS: JUVEN PACKET PO SCH (09:00)
[2021-07-09 09:37] VITALS: O2SAT 100
[2021-07-09] MEDS: ENOXAPARIN 40 MG/0.4 ML SQ SCH (09:46)
[2021-07-09] MEDS: PANTOPRAZOLE 40MG TABLET PO SCH (09:46)
[2021-07-09] MEDS: FLUDROCORTISONE 0.1 MG TAB PO SCH (09:46)
[2021-07-09] MEDS: ASPIRIN EC 81 MG TAB PO SCH (09:46)
[2021-07-09] MEDS: predniSONE 20 MG TAB PO SCH (09:47)
[2021-07-09] MEDS: METOPROLOL TAR 50 MG TAB PO SCH (09:47)
[2021-07-09] MEDS: CLOPIDOGREL 75 MG TABLET PO SCH (09:47)
[2021-07-09] MEDS: levoFLOXacin 500 MG TAB PO SCH (09:48)
[2021-07-09] MEDS: FUROSEMIDE 20 MG TABLET PO SCH (09:48)
[2021-07-09 14:05] VITALS: BP 103/63; TEMP 97.7
== END 2021-07-09 15:28 | DRG 291 ==
LOC: ER 08:28 → 2ND 15:37
PROVIDERS: ADMIT Internal Medicine; ATTEND Hospitalist
DX: I11.0 Hypertensive heart disease with heart failure (principal); E43 Unspecified severe protein-calorie malnutrition; I50.31 Acute diastolic (congestive) heart failure; Z68.1 Body mass index [BMI] 19.9 or less, adult; I48.20 Chronic atrial fibrillation, unspecified; R64 Cachexia; L89.152 Pressure ulcer of sacral region, stage 2; J44.9 Chronic obstructive pulmonary disease, unspecified; D64.9 Anemia, unspecified; G47.00 Insomnia, unspecified; K21.9 Gastro-esophageal reflux disease without esophagitis; F17.200 Nicotine dependence, unspecified, uncomplicated; E87.6 Hypokalemia; I95.1 Orthostatic hypotension; R00.0 Tachycardia, unspecified; Z88.1 Allergy status to other antibiotic agents; Z88.5 Allergy status to narcotic agent; Z88.0 Allergy status to penicillin; Z79.02 Long term (current) use of antithrombotics/antiplatelets; Z79.899 Other long term (current) drug therapy; Z86.73 Personal history of transient ischemic attack (TIA), and cerebral infarction without residual deficits; Z20.822 Contact with and (suspected) exposure to COVID-19
CPT/HCPCS: 36415; 71045; 71046; 71260; 80048; 80053; 80076; 80162; 82550; 82553; 82607; 82746; 82947; 83540; 83735; 83880; 84132; 84484; 85025; 85610; 93005; 93306; 94640; 94760; 96374; 97110; 97161; 97530; 99285; J1650; J1940; J7512; Q9967; U0003

== ENCOUNTER 2021-12-07 07:22 | Inpatient (IN) | payer OTHER ==
--- OUTSIDE RECORDS SUMMARY | 2021-12-07 07:26 | XMS REPORT | Continuity of Care Document ---
:1940 Author Organization [facility] t Address [address] [place] [address] Care Team Providers Name Role Phone Cyndi Salgado Primary Care Physician Kirill Ellis Attending Clinician Unavailable Doctor Unassigned, Name Attending Clinician Unavailable Hayden PAC, S Attending Clinician Haylie DE LA VEGA T Attending Clinician Fly BARKER Attending Clinician Physician, Primary or Family Admitting Clinician Unavailabl e KNOW Admitting Clinician Unavailable Gordy, S Admitting Clinician Unavailable Payers Payer Name Policy Type Policy Number Effective Date Expiration Date S ource Problems Condition Condition Condition Status Onset Resolution Last Treating Co mments Source Name Details Category Date Date Treatment Clinician Date Oxygen Oxygen Disease Active 2020-08 Univers desaturati desaturati 08-15 it y of on on 00:00: [place] 00 [facility] Branch E46 E46 Disease Active 2020-08 Univers Unspecifie Unspecifie 08-08 it y of d severe d severe 00:00: [place] protein-ca protein-ca 00 W[place] dical madelyn joshi Branch malnutriti malnutriti on on Hypotensio Hypotensio Disease Active 2020-08 U nivers n due to n due to 08-07 ity of hypovolemi [place]ovolemi [place] Intertroch Intertroch Disease Active 2020-08 U nivers anteric anteric 0-30 ity of fracture fracture 00:00: [place] of right of right 00 Medica l femur, femur, Branch closed, closed, initial initial encounter encounter Closed Closed Disease Active 2020-08 Overview: [place] s fracture fracture 0-30 [place] ity of of right of right 00:00: g of this Jem as hip, hip, 00 note Medical initial initial might be Branch encounter encounter different from the original. Added automatic ally from request for surgery [id number] Allergies, Adverse Reactions, Alerts Allergy Allergy Status Severity Reaction(s) Onset Inactive Treating Comm ents Source Name Type Date Date Clinician Sulfa Propensi Active Unknown - 2020-08 Unive rs (Sulfona ty to See comments 2-07 it y of mide adverse 00:00: [place] Antibiot reaction 00 Medica l ics) s Branch Penicill Propensi Active Unknown - 2020-08 Uni vers in ty to See comments 0-30 ity of adverse 00:00: [place] reaction 00 Medical s Branch Codeine Propensi Active Itching Univer s ty to 6-23 ity of adverse 00:00: [place] reaction 00 Medical s Branch Penicill DA Active SV 2020-0 [facility] [place] [facility] Penicill DA Active SV HIVES 2020-0 [facility] ins 5-27 [place] 00:[facility]: d [facility] Penicill DA Active SV 2020-0 [facility] ins 3-29 [place] 00:[facility]: d [facility] Penicill DA Active SV HIVES 2020-0 [facility] ins 3-29 [place] 00:[facility]: d [facility] Penicill DA Active SV 2020-0 [facility] ins 3-03 [place] 00:[facility]: d [facility] Penicill DA Active SV HIVES 2020-0 [facility] ins 3-03 [place] 00:[facility]: d [facility] Penicill DA Active SV 2014- [facility] ins 0-05 [place] 00:00: [place] 00 [facility] Penicill DA Active SV HIVES 2014- [facility] ins 0-05 Clear 00:00: [place] 00 [facility] Social History Social Habit Start Date Stop Date Quantity Comments Source History of tobacco Cigarette Smoker [facility] of use [place] [facility] History SDOH University o f Alcohol Frequency [place] [facility] History SDOH University o f Alcohol Std Drinks [place] [facility] History SDMS University o f Alcohol Binge [place] [facility] Exposure to Not sure University of SARS-CoV-2 (event) [facility] Alcohol intake 2021-06-07 2021-06-07 5 /d University of 00:00:00 00:00:00 [facility] Cigarettes smoked 2021-06-06 2021-06-06 Univers ity of current (pack per 00:00:00 00:00:00 ) - Reported Branch Cigarette 2021-06-06 2021-06-06 University of pack-years 00:00:00 00:00:00 [facility] Alcohol Comment 2021-06-06 2021-06-06 5-6 shots of Univers ity of 00:00:00 00:00:00 whisky a day [facility] [place] [facility] Sex [birth year] Universit y of 00:00:00 00:00:00 [facility] Smoking Status Start Date Stop Date Source Current every day smoker 2021-06-06 00:00:00 Uni versity of [facility] Medications Ordered Filled Start Stop Current Ordering Indication Dosage Frequency Signature Comments Components Source Medication Medication Date Date Medication? Clinician (SIG) Name Name clopidogreL 2020-08 Yes 75mg Take 75 mg Univers (PLAVIX) 75 1-15 by mouth ity of mg tablet 20:27: daily. [address] clopidogreL 2020-08 Yes 75mg Take 75 mg Univers (PLAVIX) 75 1-15 by mouth ity of mg tablet 20:27: daily. [address] clopidogreL 2020-08 Yes 75mg Take 75 mg Univers (PLAVIX) 75 1-15 by mouth ity of mg tablet 20:27: daily. [address] magnesium 2020-08 Yes [id number] 400mg Take 400 Univers oxide 420 1-11 mg by ity of mg Tab 00:00: mouth 00 daily. [facility] magnesium 2020-08 Yes [id number] 400mg Take 400 Univers oxide 420 1-11 mg by ity of mg Tab 00:00: mouth [place] 00 daily. [facility] magnesium 2020-08 Yes [id number] 400mg Take 400 Univers oxide 420 1-11 mg by ity of mg Tab 00:00: mouth 00 daily. [facility] thiamine 2020-08 Yes [id number] 100mg Take 1 U nivers 100 mg 1-10 tablet by ity of tablet 00:00: mouth [place] 00 daily. Medical Branch vitamin 2020-08 Yes [id number] 1000ug Take 1 U nivers B-12 1,000 1-10 tablet by ity of mcg tablet 00:00: mouth [place] 00 daily. Medical Branch nicotine 14 2020-08 Yes [id number] 1{patch Apply 1 Univers mg/24 hr 1-10 } Patch to ity of patch 00:00: area(s) [place] 00 every 24 Medical (- Branch ur) hours as needed (nicotine urge). mirtazapine 2020-08 Yes [id number] 15mg Take 1 Univers 15 mg 1-10 tablet by ity of tablet 00:00: mouth at [place] 00 bedtime. Medical Branch melatonin 3 2020-08 Yes [id number] 3mg Take 1 Univers mg tablet 1-10 tablet by ity o f 00:00: mouth at [place] 00 bedtime. Medical Branch foLIC acid 2020-08 Yes [id number] 1mg Take 1 Univers 1 mg tablet 1-10 tablet by ity of 00:00: mouth [place] 00 daily. Medical Branch digoxin 125 2020-08 Yes [id number] .25mg Take 2 Univers mcg tablet 1-10 tablets by ity of 00:00: mouth [place] 00 every Medical other day. Branch enoxaparin 2020-08 Yes [id number] 40mg inject 0.4 Univers 40 mg/0.4 1-10 mL under ity of mL 00:00: the skin [place] injection 00 every 24 Medica l ( Branch ur) hours. pantoprazol 2020-08 Yes [id number] 40mg Take 1 Univers e 40 mg EC 1-10 tablet by ity of tablet 00:00: mouth [place] 00 daily. Medical Branch sennosides- 2020-08 Yes [id number] 1{tbl} Take 1 Univers docusate 1-10 tablet by ity of sodium 00:00: mouth 2 [place] 8.6-50 mg 00 (two) Medical per tablet times Branch daily. polyethylen 2020-08 Yes [id number] 17g Take 1 Univers e glycol 1-10 Packet by ity of 3350 17 00:00: mouth 2 [place] gram powder 00 (two) Medical times Branch daily. metoprolol 2020-08 Yes [id number] 12.5mg Take 0.5 Univers tartrate 25 1-10 tablets by it y of mg tablet 00:00: mouth 2 [place] 00 (two) Medical times Branch daily. thiamine 2020-08 Yes [id number] 100mg Take 1 U nivers 100 mg 1-10 tablet by ity of tablet 00:00: mouth [place] 00 daily. Medical Branch vitamin 2020-08 Yes [id number] 1000ug Take 1 U nivers B-12 1,000 1-10 tablet by ity of mcg tablet 00:00: mouth [place] 00 daily. Medical Branch nicotine 14 2020-08 Yes [id number] 1{patch Apply 1 Univers mg/24 hr 1-10 } Patch to ity of patch 00:00: area(s) [place] 00 every 24 Medical (twenty-fo Branch ur) hours as needed (nicotine urge). mirtazapine 2020-08 Yes [id number] 15mg Take 1 Univers 15 mg 1-10 tablet by ity of tablet 00:00: mouth at [place] 00 bedtime. Medical Branch melatonin 3 2020-08 Yes [id number] 3mg Take 1 Univers mg tablet 1-10 tablet by ity o f 00:00: mouth at [place] 00 bedtime. Medical Branch foLIC acid 2020-08 Yes [id number] 1mg Take 1 Univers 1 mg tablet 1-10 tablet by ity of 00:00: mouth [place] 00 daily. Medical Branch digoxin 125 2020-08 Yes [id number] .25mg Take 2 Univers mcg tablet 1-10 tablets by ity of 00:00: mouth [place] 00 every Medical other day. Branch enoxaparin 2020-08 Yes [id number] 40mg inject 0.4 Univers 40 mg/0.4 1-10 mL under ity of mL 00:00: the skin [place] injection 00 every 24 Medica l (twenty-fo Branch ur) hours. pantoprazol 2020-08 Yes [id number] 40mg Take 1 Univers e 40 mg EC 1-10 tablet by ity of tablet 00:00: mouth [place] 00 daily. Medical Branch sennosides- 2020-08 Yes [id number] 1{tbl} Take 1 Univers docusate 1-10 tablet by ity of sodium 00:00: mouth 2 [place] 8.6-50 mg 00 (two) Medical per tablet times Branch daily. polyethylen 2020-08 Yes [id number] 17g Take 1 Univers e glycol 1-10 Packet by ity of 3350 17 00:00: mouth 2 [place] gram powder 00 (two) Medical times Branch daily. metoprolol 2020-08 Yes [id number] 12.5mg Take 0.5 Univers tartrate 25 1-10 tablets by it y of mg tablet 00:00: mouth 2 [place] 00 (two) Medical times Branch daily. thiamine 2020-08 Yes [id number] 100mg Take 1 U nivers 100 mg 1-10 tablet by ity of tablet 00:00: mouth [place] 00 daily. Medical Branch vitamin 2020-08 Yes [id number] 1000ug Take 1 U nivers B-12 1,000 1-10 tablet by ity of mcg tablet 00:00: mouth [place] 00 daily. Medical Branch nicotine 14 2020-08 Yes [id number] 1{patch Apply 1 Univers mg/24 hr 1-10 } Patch to ity of patch 00:00: area(s) [place] 00 every 24 Medical ([facility] Branch ur) hours as needed (nicotine urge). mirtazapine 2020-08 Yes [id number] 15mg Take 1 Univers 15 mg 1-10 tablet by ity of tablet 00:00: mouth at [place] 00 bedtime. Medical Branch melatonin 3 2020-08 Yes [id number] 3mg Take 1 Univers mg tablet 1-10 tablet by ity o f 00:00: mouth at [place] 00 bedtime. Medical Branch foLIC acid 2020-08 Yes [id number] 1mg Take 1 Univers 1 mg tablet 1-10 tablet by ity of 00:00: mouth [place] 00 daily. Medical Branch digoxin 125 2020-08 Yes [id number] .25mg Take 2 Univers mcg tablet 1-10 tablets by ity of 00:00: mouth [place] 00 every Medical other day. Branch enoxaparin 2020-08 Yes [id number] 40mg inject 0.4 Univers 40 mg/0.4 1-10 mL under ity of mL 00:00: the skin [place] injection 00 every 24 Medica l ([facility]- Branch ur) hours. pantoprazol 2020-08 Yes [id number] 40mg Take 1 Univers e 40 mg EC 1-10 tablet by ity of tablet 00:00: mouth [place] 00 daily. Medical Branch sennosides- 2020-08 Yes [id number] 1{tbl} Take 1 Univers docusate 1-10 tablet by ity of sodium 00:00: mouth 2 [place] 8.6-50 mg 00 (two) Medical per tablet times Branch daily. polyethylen 2020-08 Yes [id number] 17g Take 1 Univers e glycol 1-10 Packet by ity of 3350 17 00:00: mouth 2 [place] gram powder 00 (two) Medical times Branch daily. metoprolol 2020-08 Yes [id number] 12.5mg Take 0.5 Univers tartrate 25 1-10 tablets by it y of mg tablet 00:00: mouth 2 [place] 00 (two) Medical times Branch daily. Vital Signs Vital Name Observation Time Observation Value Comments Source Systolic blood 2021-07-13 20:10:00 103 mm[Hg] [facility] Diastolic blood 2021-07-13 20:10:00 61 mm[Hg] [facility] Heart rate 2021-07-13 20:10:00 91 /min [facility] Body height 2021-07-13 20:10:00 180.3 cm [facility] Procedures Procedure Date / Time Performed Performing Clinician [facility] e EXTERNAL PROVIDER 2021-08-16 06:01:00 Doctor Unassigned, No Univ [facility] RECORDS Name Medical Branch [id number] 2020-01-03 00:00:00 BE [facility] [id number] 2020-01-03 00:00:00 BE [facility] [id number] 2019-10-14 00:00:00 CHABI [facility] [id number] 2019-10-14 00:00:00 CHABI [facility] [id number] 2019-10-08 00:00:00 GENOVEVA [facility] Encounters Start End Encounter Admission Attending Care Care Encounter Source Date/Time Date/Time Type Type Clinicians Facility Department ID 2020-01-03 Inpatient Bari Ellis [facility] DAYS [id number] [facility] 12:30:00 [id number] [facility] 2020-01-01 Inpatient Bari Ellis [facility] DAYS [id number] [facility] 14:30:00 [id number] [facility] 2019-11-03 Inpatient [facility] ZOLIA [id number] [facility] 13:23:00 [id number] [facility] 2019-10-08 Inpatient [facility] ZOILA [id number] [facility] 02:25:00 [facility] 2019-10-07 Inpatient HCAPM ZOILA [id number] [facility] 19:45:00 [facility] 2021-08-16 2021-08-16 Orders Doctor MAXINE [id number] Univers 00:00:00 00:00:00 Only Unassigned, ZAINA [id number] ity of [place] [facility] 4.2.7.2.686 Jem as [id number] [address] 2021-07-13 2021-07-13 Office Hayden [facility] [id number] [facility] 13:30:00 15:01:25 Visit [facility] [id number] it y of [place] 4.2.7.2.686 Jem as LIZA?BLEA [id number] [place] dical [address] MEDICAL OFFICE [facility] 2019-11-03 2019-11-03 Emergency Martin Stallings [facility] [id number] 09:23:23 12:59:00 Juan Antonio Bill [id number] [place] 4.2.7.2.686 [place] [id number] Results Test Description Test Time Test Comments Results Result [facility] clarissa Comments SURGICAL SPECIMENS 2020-01-10 08:49:00 --------RUN DATE: 01/10/20 [place] [facility] *LIVE* PAGE 1 RUN TIME: 0850 Specimen Inquiry RUN USER: INTERFACE --------PATIENT: JANNETTE RODARTE [facility] #: [id number] AGE/SX: 79/M ROOM: [facility] RE01/03/20REG DR: Uri Willams MD : 38 BED: 1 DIS: 01/04/20 STATUS: DIS IN TLOC: -------- SPEC #: [id number] RECD: 01/06/20 STATUS: MEGAN RE #: [id number] JENNY: 01/06/[address]: Uri Willams MD ENTERED: 01/08/20 SP TYPE: SURG SPEC OTHR DR: Mai Primary or Family Physician Bari Ellis MDORDERED: LEVEL 4 CODES: [id number] - ARTERY, NOS COPIES TO: No Primary or Family Physician Bari Ellis MD [address] [facility] [address] [place] [address] Uri Willams MD [address] [facility] [address] [address] PROCEDURES: GM LEVEL 4 (Incomplete) TISSUES: 1. ARTERY, NOS - Artery, right carotid, segment FINAL DIAGNOSIS Artery, right carotid, segment: Partially calcified atherosclerotic plaque. GROSS AND MICROSCOPIC GROSS EXAMINATION: Received in formalin labeled carotid artery plaque is a 2.1 cm in length 0.9 cm in diameter calcified plaque submitted for decalcification in one cassette. MICROSCOPIC EXAMINATION: Sections of the right carotid reveal a partially calcified atherosclerotic plaque. POST-OP DIAGNOSIS Right carotid stenosis CONTINUED ON NEXT PAGE --------RUN DATE: 01/10/20 [place] [facility] *LIVE* PAGE 2 RUN TIME: 0850 Specimen Inquiry RUN USER: INTERFACE --------SPEC #: [id number] PATIENT: JANNETTE RODARTE #[id number] (Continued) PRE-OP DIAGNOSIS Right carotid stenosis Signed SIGNATURE ON FILE Hiren Henderson DO 01/10/20 0849 -------- END OF REPORT BASIC METABOLIC PANEL 2020-01-04 06:30:00 Test Item Value Reference Range Interpretation Comme nts SODIUM (test code = NA) 136 mEq/L 134-147 N POTASSIUM (test code = K) 4.1 mEq/L 3.4-5.0 N CHLORIDE (test code = CL) 103 mEq/L 100-108 N CARBON DIOXIDE (test code = CO2) 27 mEq/L 21-33 N ANION GAP (test code = GAP) 10 0-20 N GLUCOSE (test code = GLU) 115 mg/dL 70-110 H BLOOD UREA NITROGEN (test code = 11 mg/dL 7-18 N BUN) GLOMERULAR FILTRATION RATE (test 159.6 70-80 H Units of measure = ml/min/1.73 code = GFR) m2 CREATININE (test code = CREAT) 0.5 mg/dL 0.6-1.3 L CALCIUM (test code = CA) 7.7 mg/dL 8.0-10.5 L [id number] 06:30:00 Test Item Value Reference Range Interpretation Comments PHOSPHOROUS (test code = PHOS) 3.2 MG/DL 2.5-4.9 N [id number] 06:30:00 Test Item Value Reference Range Interpretation Comments MAGNESIUM (test code = MAG) 1.80 mg/dL 1.8-2.4 N CBC W/AUTO [id number] 06:14:00 Test Item Value Reference Range Interpretation Comments WHITE BLOOD CELL (test code = 9.38 x10 3/uL 4.5-11.0 N WBC) RED BLOOD CELL (test code = 3.62 x10 6/uL 4.00-5.60 L RBC) HEMOGLOBIN (test code = HGB) 11.1 g/dL 12.5-16.9 L HEMATOCRIT (test code = HCT) 33.0 % 37.5-50.7 L MEAN CELL VOLUME (test code = 91.2 fL 81.0-99.0 N MCV) MEAN CELL HGB (test code = MCH) 30.7 pg 27.0-33.0 N MEAN CELL HGB CONCETRATION 33.6 g/dL 33.0-37.0 N (test code = MCHC) RED CELL DISTRIBUTION WIDTH CV 12.8 % 11.5-14.5 N (test code = RDW) RED CELL DISTRIBUTION WIDTH SD 42.2 fL 37.0-54.0 N (test code = RDW-SD) PLATELET COUNT (test code = 238 x10 3/uL 150-400 N PLT) MEAN PLATELET VOLUME (test code 9.9 fL 7.0-9.0 H = MPV) NEUTROPHIL % (test code = NT%) 77.5 % 56.0-77.0 H IMMATURE GRANULOCYTE % (test 0.3 % 0.0-2.0 N code = IG%) LYMPHOCYTE % (test code = LY%) 9.6 % 14.0-32.0 L MONOCYTE % (test code = MO%) 12.3 % 4.8-9.0 H EOSINOPHIL % (test code = EO%) 0.1 % 0.3-3.7 L BASOPHIL % (test code = BA%) 0.2 % 0.0-2.0 N NUCLEATED RBC % (test code = 0.0 % 0-0 N NRBC%) NEUTROPHIL # (test code = NT#) 7.27 x10 3/uL 2.0-7.6 N IMMATURE GRANULOCYTE # (test 0.03 x10 3/uL 0.00-0.03 N code = IG#) LYMPHOCYTE # (test code = LY#) 0.90 x10 3/uL 1.0-3.8 L MONOCYTE # (test code = MO#) 1.15 x10 3/uL 0.1-0.8 H EOSINOPHIL # (test code = EO#) 0.01 x10 3/uL 0.0-0.2 N BASOPHIL # (test code = BA#) 0.02 x10 3/uL 0.0-0.2 N NUCLEATED RBC # (test code = 0.00 x10 3/uL 0.0-0.1 N NRBC#) MANUAL DIFF REQUIRED (test code NO = MDIFF) [id number] 13:03:00 Test Item Value Reference Range Interpretation Comments ACT-ISTAT (test code 285 SEC 74-137 H Perform ed by certified = ACTI) 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 [facility] [id number] 12:29:00 Test Item Value Reference Range Interpretation Comments ACT-ISTAT (test code 263 SEC 74-137 H Perform ed by certified = ACTI) 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 [facility] Novel Coronavirus 2019 [id number] 02:24:00 Test Item Value Reference Range Interpretation Comments Novel Coronavirus 2019 Inhouse (test Negative Negative code = COVNONPUI) BASIC METABOLIC [id number] 15:52:00 Test Item Value Reference Range Interpretation Comments SODIUM (test code = NA) 136 mEq/L 134-147 N POTASSIUM (test code = 4.6 mEq/L 3.4-5.0 N K) CHLORIDE (test code = 99 mEq/L 100-108 L CL) CARBON DIOXIDE (test 30 mEq/L 21-33 N code = CO2) ANION GAP (test code = 12 0-20 N GAP) GLUCOSE (test code = 93 mg/dL 70-110 N GLU) BLOOD UREA NITROGEN 11 mg/dL 7-18 N (test code = BUN) GLOMERULAR FILTRATION 129.3 70-80 H Units of measure = RATE (test code = GFR) ml/mi n/1.73 m2 CREATININE (test code = 0.6 mg/dL 0.6-1.3 N CREAT) CALCIUM (test code = 8.7 mg/dL 8.0-10.5 N CA) PROTHROMBIN [id number] 15:52:00 Test Item Value Reference Range Interpretation Comments PROTHROMBIN TIME 11.7 SECONDS 9.3-12.9 N PATIENT (test code = PTP) INTERNATIONAL NORMAL 1.1 0.8-1.2 N TARGET RATIO (test code = INR BY IN DICATION INR) Indication INR1. Prophyl axis of venous thrombos is 2.0 - 3. 0 (orthopedic hernan yojana), Prophylaxis of venous thrombos is (other than hig h-risk surgery), Abbi tment of Deep Vein Thrombosis/Pulm onary Embolism, Preve ntion of systemic emb olism - Tissue heart va lves, Acute Myocardia l Infarction (to prevent systemic embo lism), Valvular heart disease, Atri al Fibrillation, Bileaflet mecha nical valve in aortic position.2. Mec hanical prosthetic valv es (high risk), 2.5 - 3.5 Presence of Lupus Anticoagu lant or Antiphospholi pid Antibodies, Pre vention of systemic e mbolism - Acute Myocard ial Infarction (t o prevent recurre nt infarct). THROMBOPLASTIN TIME [id number] 15:52:00 Test Item Value Reference Range Interpretation Comments THROMBOPLASTIN TIME 36.4 Seconds 25.0-39.5 N Ther apeutic PARTIAL (test code = Range: 50.4 - 88.3 PTT) Seconds Effective 11/20/2018 BASIC METABOLIC [id number] 15:45:00 Test Item Value Reference Range Interpretation Comments SODIUM (test code = NA) 136 mEq/L 134-147 N POTASSIUM (test code = K) 4.6 mEq/L 3.4-5.0 N CHLORIDE (test code = CL) 99 mEq/L 100-108 L CARBON DIOXIDE (test code = CO2) 30 mEq/L 21-33 N ANION GAP (test code = GAP) 12 0-20 N GLUCOSE (test code = GLU) 93 mg/dL 70-110 N BLOOD UREA NITROGEN (test code = 11 mg/dL 7-18 N BUN) GLOMERULAR FILTRATION RATE (test 70-80 code = GFR) CREATININE (test code = CREAT) mg/dL 0.6-1.3 CALCIUM (test code = CA) 8.7 mg/dL 8.0-10.5 N CBC W/AUTO [id number] 15:43:00 Test Item Value Reference Range Interpretation Comments WHITE BLOOD CELL (test code = 7.84 x10 3/uL 4.5-11.0 N WBC) RED BLOOD CELL (test code = 4.42 x10 6/uL 4.00-5.60 N RBC) HEMOGLOBIN (test code = HGB) 13.4 g/dL 12.5-16.9 N HEMATOCRIT (test code = HCT) 41.2 % 37.5-50.7 N MEAN CELL VOLUME (test code = 93.2 fL 81.0-99.0 N MCV) MEAN CELL HGB (test code = MCH) 30.3 pg 27.0-33.0 N MEAN CELL HGB CONCETRATION 32.5 g/dL 33.0-37.0 L (test code = MCHC) RED CELL DISTRIBUTION WIDTH CV 12.6 % 11.5-14.5 N (test code = RDW) RED CELL DISTRIBUTION WIDTH SD 43.4 fL 37.0-54.0 N (test code = RDW-SD) PLATELET COUNT (test code = 281 x10 3/uL 150-400 N PLT) MEAN PLATELET VOLUME (test code 9.6 fL 7.0-9.0 H = MPV) NEUTROPHIL % (test code = NT%) 67.5 % 56.0-77.0 N IMMATURE GRANULOCYTE % (test 0.3 % 0.0-2.0 N code = IG%) LYMPHOCYTE % (test code = LY%) 20.4 % 14.0-32.0 N MONOCYTE % (test code = MO%) 9.6 % 4.8-9.0 H EOSINOPHIL % (test code = EO%) 1.7 % 0.3-3.7 N BASOPHIL % (test code = BA%) 0.5 % 0.0-2.0 N NUCLEATED RBC % (test code = 0.0 % 0-0 N NRBC%) NEUTROPHIL # (test code = NT#) 5.30 x10 3/uL 2.0-7.6 N IMMATURE GRANULOCYTE # (test 0.02 x10 3/uL 0.00-0.03 N code = IG#) LYMPHOCYTE # (test code = LY#) 1.60 x10 3/uL 1.0-3.8 N MONOCYTE # (test code = MO#) 0.75 x10 3/uL 0.1-0.8 N EOSINOPHIL # (test code = EO#) 0.13 x10 3/uL 0.0-0.2 N BASOPHIL # (test code = BA#) 0.04 x10 3/uL 0.0-0.2 N NUCLEATED RBC # (test code = 0.00 x10 3/uL 0.0-0.1 N NRBC#) MANUAL DIFF REQUIRED (test code NO = MDIFF) - XR CHEST 2 [id number] 15:35:00 FAX: Bari Gunter MD [phone] [place]: St: PRE Name: JANNETTE RODARTE [facility] [place] Lance : 1940 Age/S: 79/M [address] [place] [address] Blvd Unit#: [id number] Loc: [place] [address] Phys: Bari Ellis MD Acct: [id number] Dis Date: Status: PRE IN PHONE #: [phone] Exam Date: 01/01/2020 1533 FAX #: [phone] Reason: PREOP- EXAMS: CPT CODE: [id number] XR CHEST 2 V [id number] EXAM: CHEST TWO VIEW HISTORY: 79-year-old male for preoperative evaluation, carotid artery stenosis COMPARISON: Chest radiograph 11/03/2019 FINDINGS: Small bilateral effusions with associated mild bibasilar atelectasis/consolidation. Mild interstitial prominence. The cardiomediastinal silhouette is normal for projection. Aortic calcifications. No acute osseous abnormality. Degenerative changes in the spine. Old healed right rib fractures. IMPRESSION: 1. Small bilateral effusions with associated mild bibasilar atelectasis/consolidation.2. Mild interstitial prominence likely related to emphysematous changes. SL: [id number] at 1535 Reported and signed by: Roel Briggs M.D. CC: Bari Ellis MD Technologist: Colette Escudero, RT(R), RTT Trnscrd Date/Time/By: 01/01/2020 (1535) : By: [email or web address] [facility] Print D/T: S: 01/01/2020 (1538) PAGE 1 Signed ReportBASIC METABOLIC [id number] 04:57:00 Test Item Value Reference Range Interpretation Comments SODIUM (test code = NA) 134 mEq/L 134-147 N POTASSIUM (test code = 3.5 mEq/L 3.4-5.0 N K) CHLORIDE (test code = 100 mEq/L 100-108 N CL) CARBON DIOXIDE (test 29 mEq/L 21-33 N code = CO2) ANION GAP (test code = 9 0-20 N GAP) GLUCOSE (test code = 98 mg/dL 70-110 N GLU) BLOOD UREA NITROGEN 11 mg/dL 7-18 N (test code = BUN) GLOMERULAR FILTRATION 206.5 70-80 H Units of measure = RATE (test code = GFR) ml/mi n/1.73 m2 CREATININE (test code = 0.4 mg/dL 0.6-1.3 L CREAT) CALCIUM (test code = 7.8 mg/dL 8.0-10.5 L CA) CBC W/AUTO [id number] 04:42:00 Test Item Value Reference Range Interpretation Comments WHITE BLOOD CELL (test code = 7.47 x10 3/uL 4.5-11.0 N WBC) RED BLOOD CELL (test code = 3.53 x10 6/uL 4.00-5.60 L RBC) HEMOGLOBIN (test code = HGB) 11.0 g/dL 12.5-16.9 L HEMATOCRIT (test code = HCT) 32.8 % 37.5-50.7 L MEAN CELL VOLUME (test code = 92.9 fL 81.0-99.0 N MCV) MEAN CELL HGB (test code = MCH) 31.2 pg 27.0-33.0 N MEAN CELL HGB CONCETRATION 33.5 g/dL 33.0-37.0 N (test code = MCHC) RED CELL DISTRIBUTION WIDTH CV 14.2 % 11.5-14.5 N (test code = RDW) RED CELL DISTRIBUTION WIDTH SD 47.8 fL 37.0-54.0 N (test code = RDW-SD) PLATELET COUNT (test code = 219 x10 3/uL 150-400 N PLT) MEAN PLATELET VOLUME (test code 9.2 fL 7.0-9.0 H = MPV) NEUTROPHIL % (test code = NT%) 67.2 % 56.0-77.0 N IMMATURE GRANULOCYTE % (test 0.4 % 0.0-2.0 N code = IG%) LYMPHOCYTE % (test code = LY%) 18.3 % 14.0-32.0 N MONOCYTE % (test code = MO%) 11.4 % 4.8-9.0 H EOSINOPHIL % (test code = EO%) 2.3 % 0.3-3.7 N BASOPHIL % (test code = BA%) 0.4 % 0.0-2.0 N NUCLEATED RBC % (test code = 0.0 % 0-0 N NRBC%) NEUTROPHIL # (test code = NT#) 5.02 x10 3/uL 2.0-7.6 N IMMATURE GRANULOCYTE # (test 0.03 x10 3/uL 0.00-0.03 N code = IG#) LYMPHOCYTE # (test code = LY#) 1.37 x10 3/uL 1.0-3.8 N MONOCYTE # (test code = MO#) 0.85 x10 3/uL 0.1-0.8 H EOSINOPHIL # (test code = EO#) 0.17 x10 3/uL 0.0-0.2 N BASOPHIL # (test code = BA#) 0.03 x10 3/uL 0.0-0.2 N NUCLEATED RBC # (test code = 0.00 x10 3/uL 0.0-0.1 N NRBC#) MANUAL DIFF REQUIRED (test code NO = MDIFF) CBC W/AUTO [id number] 07:45:00 Test Item Value Reference Range Interpretation Comments WHITE BLOOD CELL (test code = 7.02 x10 3/uL 4.5-11.0 N WBC) RED BLOOD CELL (test code = 3.50 x10 6/uL 4.00-5.60 L RBC) HEMOGLOBIN (test code = HGB) 11.0 g/dL 12.5-16.9 L HEMATOCRIT (test code = HCT) 32.7 % 37.5-50.7 L MEAN CELL VOLUME (test code = 93.4 fL 81.0-99.0 N MCV) MEAN CELL HGB (test code = MCH) 31.4 pg 27.0-33.0 N MEAN CELL HGB CONCETRATION 33.6 g/dL 33.0-37.0 N (test code = MCHC) RED CELL DISTRIBUTION WIDTH CV 14.2 % 11.5-14.5 N (test code = RDW) RED CELL DISTRIBUTION WIDTH SD 47.7 fL 37.0-54.0 N (test code = RDW-SD) PLATELET COUNT (test code = 228 x10 3/uL 150-400 N PLT) MEAN PLATELET VOLUME (test code 9.5 fL 7.0-9.0 H = MPV) NEUTROPHIL % (test code = NT%) 66.5 % 56.0-77.0 N IMMATURE GRANULOCYTE % (test 0.4 % 0.0-2.0 N code = IG%) LYMPHOCYTE % (test code = LY%) 20.1 % 14.0-32.0 N MONOCYTE % (test code = MO%) 10.5 % 4.8-9.0 H EOSINOPHIL % (test code = EO%) 1.9 % 0.3-3.7 N BASOPHIL % (test code = BA%) 0.6 % 0.0-2.0 N NUCLEATED RBC % (test code = 0.0 % 0-0 N NRBC%) NEUTROPHIL # (test code = NT#) 4.67 x10 3/uL 2.0-7.6 N IMMATURE GRANULOCYTE # (test 0.03 x10 3/uL 0.00-0.03 N code = IG#) LYMPHOCYTE # (test code = LY#) 1.41 x10 3/uL 1.0-3.8 N MONOCYTE # (test code = MO#) 0.74 x10 3/uL 0.1-0.8 N EOSINOPHIL # (test code = EO#) 0.13 x10 3/uL 0.0-0.2 N BASOPHIL # (test code = BA#) 0.04 x10 3/uL 0.0-0.2 N NUCLEATED RBC # (test code = 0.00 x10 3/uL 0.0-0.1 N NRBC#) MANUAL DIFF REQUIRED (test code NO = MDIFF) BASIC METABOLIC [id number] 07:42:00 Test Item Value Reference Range Interpretation Comments SODIUM (test code = NA) 132 mEq/L 134-147 L POTASSIUM (test code = 3.8 mEq/L 3.4-5.0 N K) CHLORIDE (test code = 101 mEq/L 100-108 N CL) CARBON DIOXIDE (test 25 mEq/L 21-33 N code = CO2) ANION GAP (test code = 10 0-20 N GAP) GLUCOSE (test code = 80 mg/dL 70-110 N GLU) BLOOD UREA NITROGEN 11 mg/dL 7-18 (test code = BUN) GLOMERULAR FILTRATION 159.6 70-80 H Units of measure = RATE (test code = GFR) ml/mi n/1.73 m2 CREATININE (test code = 0.5 mg/dL 0.6-1.3 L CREAT) CALCIUM (test code = 8.0 mg/dL 8.0-10.5 N CA) COMPREHENSIVE METABOLIC [id number] 08:03:00 Test Item Value Reference Range Interpretation Comments SODIUM (test code = NA) 137 mEq/L 134-147 N POTASSIUM (test code = 3.5 mEq/L 3.4-5.0 N K) CHLORIDE (test code = 104 mEq/L 100-108 N CL) CARBON DIOXIDE (test 28 mEq/L 21-33 N code = CO2) ANION GAP (test code = 9 0-20 N GAP) GLUCOSE (test code = 76 mg/dL 70-110 GLU) BLOOD UREA NITROGEN 8 mg/dL 7-18 (test code = BUN) GLOMERULAR FILTRATION 206.5 70-80 H Units of measure = RATE (test code = GFR) ml/mi n/1.73 m2 CREATININE (test code = 0.4 mg/dL 0.6-1.3 L CREAT) TOTAL PROTEIN (test 5.4 g/dL 6.4-8.2 L code = PROT) ALBUMIN (test code = 2.50 g/dL 3.4-5.0 L ALB) CALCIUM (test code = 7.8 mg/dL 8.0-10.5 L CA) BILIRUBIN TOTAL (test 0.6 MG/DL <1.5 N code = BILT) SGOT/AST (test code = 21 IUnit/L 15-37 N AST) SGPT/ALT (test code = 24 IUnit/L 15-65 N ALT) ALKALINE PHOSPHATASE 74 IUnit/L 20-125 N TOTAL (test code = ALKP) CBC W/AUTO [id number] 07:03:00 Test Item Value Reference Range Interpretation Comments WHITE BLOOD CELL (test code = 5.05 x10 3/uL 4.5-11.0 N WBC) RED BLOOD CELL (test code = 3.09 x10 6/uL 4.00-5.60 L RBC) HEMOGLOBIN (test code = HGB) 9.6 g/dL 12.5-16.9 L HEMATOCRIT (test code = HCT) 28.9 % 37.5-50.7 L MEAN CELL VOLUME (test code = 93.5 fL 81.0-99.0 N MCV) MEAN CELL HGB (test code = MCH) 31.1 pg 27.0-33.0 N MEAN CELL HGB CONCETRATION 33.2 g/dL 33.0-37.0 N (test code = MCHC) RED CELL DISTRIBUTION WIDTH CV 14.2 % 11.5-14.5 N (test code = RDW) RED CELL DISTRIBUTION WIDTH SD 47.8 fL 37.0-54.0 N (test code = RDW-SD) PLATELET COUNT (test code = 200 x10 3/uL 150-400 N PLT) MEAN PLATELET VOLUME (test code 9.7 fL 7.0-9.0 H = MPV) NEUTROPHIL % (test code = NT%) 67.5 % 56.0-77.0 N IMMATURE GRANULOCYTE % (test 0.4 % 0.0-2.0 N code = IG%) LYMPHOCYTE % (test code = LY%) 18.2 % 14.0-32.0 N MONOCYTE % (test code = MO%) 11.5 % 4.8-9.0 H EOSINOPHIL % (test code = EO%) 1.6 % 0.3-3.7 N BASOPHIL % (test code = BA%) 0.8 % 0.0-2.0 N NUCLEATED RBC % (test code = 0.0 % 0-0 N NRBC%) NEUTROPHIL # (test code = NT#) 3.41 x10 3/uL 2.0-7.6 N IMMATURE GRANULOCYTE # (test 0.02 x10 3/uL 0.00-0.03 N code = IG#) LYMPHOCYTE # (test code = LY#) 0.92 x10 3/uL 1.0-3.8 L MONOCYTE # (test code = MO#) 0.58 x10 3/uL 0.1-0.8 N EOSINOPHIL # (test code = EO#) 0.08 x10 3/uL 0.0-0.2 N BASOPHIL # (test code = BA#) 0.04 x10 3/uL 0.0-0.2 N NUCLEATED RBC # (test code = 0.00 x10 3/uL 0.0-0.1 N NRBC#) MANUAL DIFF REQUIRED (test code NO = MDIFF) HGB [id number] 01:53:00 Test Item Value Reference Range Interpretation Comments HEMOGLOBIN (test code = HGB) 10.7 g/dL 12.5-16.9 L HEMATOCRIT (test code = HCT) 32.1 % 37.5-50.7 L HGB [id number] 20:01:00 Test Item Value Reference Range Interpretation Comments HEMOGLOBIN (test code = HGB) 10.7 g/dL 12.5-16.9 L HEMATOCRIT (test code = HCT) 31.2 % 37.5-50.7 L - XR CHEST 1 [id number] 15:52:00 FAX: Ector Brady DO [phone] [place]: St: ADM Name: JANNETTE RODARTE [facility] : 1940 Age/S: 79/M [address] [place] [address] Unit#: [id number] Loc: [place] [address] Phys: Ector Domínguez DO Acct: [id number] Dis Date: Status: ADM IN PHONE #: [phone] Exam Date: 11/03/2019 1549 FAX #: [phone] Reason: gi bleed EXAMS: CPT CODE: [id number] XR CHEST 1 V [id number] PROCEDURE: Chest Radiograph. Clinical Indication: GI bleed, melena. Comparison: Chest radiograph 01/15/2010. FINDINGS: The chest shows bilateral interstitial infiltrate/edema. There is subsegmental atelectasis at the lung bases. There are small bilateral pleural effusions, right greater than left. The cardiac silhouette appears slightly enlarged. There are multiple old rig ht rib fractures. IMPRESSION: 1. Minimal bilateral interstitial infiltrate/edema with bibasilar subsegmental atelectasis and small bilateral pleural effusions. SL: OCO-H at 1552 Reported and signed by: Júnior Hunter M.D. CC: Ector Domínguez DO Technologist: Свтелана Deng RT(R); Scarlet Guevara, RT(R) Trnscrd Date/Time/By: 11/03/2019 (7289) : By: RejiTDO Orig Print D/T: S: 11/03/2019 (5853) PAGE 1 Signed ReportBASIC METABOLIC [id number] 14:34:00 Test Item Value Reference Range Interpretation Comments SODIUM (test code = NA) 134 mEq/L 134-147 N POTASSIUM (test code = 3.8 mEq/L 3.4-5.0 N K) CHLORIDE (test code = 98 mEq/L 100-108 L CL) CARBON DIOXIDE (test 32 mEq/L 21-33 N code = CO2) ANION GAP (test code = 8 0-20 N GAP) GLUCOSE (test code = 106 mg/dL 70-110 N GLU) BLOOD UREA NITROGEN 11 mg/dL 7-18 N (test code = BUN) GLOMERULAR FILTRATION 159.6 70-80 H Units of measure = RATE (test code = GFR) ml/mi n/1.73 m2 CREATININE (test code = 0.5 mg/dL 0.6-1.3 L CREAT) CALCIUM (test code = 8.3 mg/dL 8.0-10.5 N CA) HEPATIC FUNCTION [id number] 14:34:00 Test Item Value Reference Range Interpretation Comments TOTAL PROTEIN (test code = PROT) 6.5 g/dL 6.4-8.2 N ALBUMIN (test code = ALB) 3.10 g/dL 3.4-5.0 L BILIRUBIN TOTAL (test code = BILT) 0.6 MG/DL <1.5 N BILIRUBIN DIRECT (test code = 0.30 MG/DL 0.0-0.30 N BILD) BILIRUBIN INDIRECT (test code = 0.30 MG/DL BILIND) SGOT/AST (test code = AST) 27 IUnit/L 15-37 N SGPT/ALT (test code = ALT) 32 IUnit/L 15-65 N ALKALINE PHOSPHATASE TOTAL (test 90 IUnit/L 20-125 N code = ALKP) [id number] 14:34:00 Test Item Value Reference Range Interpretation Comments LIPASE (test code = LIP) 88 IUnit/L 73-393 N [id number] 14:34:00 Test Item Value Reference Range Interpretation Comments TROPONIN-I < 0.015 ng/mL 0.000-0.045 N Negative: <= (test code = 0.045 Positive: TROPI) >= 0.046 Correl ation with serial results, other cardiac markers andclinical findings is nec essary to determine the clinicalsignifi cance of this result. Results using different metho dologies should not be c omparedto one another as dillan titative results may sukumar y by method. BASIC METABOLIC [id number] 14:30:00 Test Item Value Reference Range Interpretation Comments SODIUM (test code = NA) mEq/L 134-147 POTASSIUM (test code = K) mEq/L 3.4-5.0 CHLORIDE (test code = CL) mEq/L 100-108 CARBON DIOXIDE (test code = CO2) mEq/L 21-33 ANION GAP (test code = GAP) 0-20 GLUCOSE (test code = GLU) mg/dL 70-110 BLOOD UREA NITROGEN (test code = BUN) mg/dL 7-18 GLOMERULAR FILTRATION RATE (test code 70-80 = GFR) CREATININE (test code = CREAT) mg/dL 0.6-1.3 CALCIUM (test code = CA) mg/dL 8.0-10.5 HEPATIC FUNCTION [id number] 14:30:00 Test Item Value Reference Range Interpretation Comments TOTAL PROTEIN (test code = PROT) g/dL 6.4-8.2 ALBUMIN (test code = ALB) g/dL 3.4-5.0 BILIRUBIN TOTAL (test code = BILT) MG/DL <1.5 BILIRUBIN DIRECT (test code = BILD) MG/DL 0.0-0.30 SGOT/AST (test code = AST) IUnit/L 15-37 SGPT/ALT (test code = ALT) IUnit/L 15-65 ALKALINE PHOSPHATASE TOTAL (test IUnit/L 20-125 code = ALKP) [id number] 14:30:00 Test Item Value Reference Range Interpretation Comments LIPASE (test code = LIP) IUnit/L 73-393 [id number] 14:30:00 Test Item Value Reference Range Interpretation Comments TROPONIN-I < 0.015 ng/mL 0.000-0.045 N Negative: <= (test code = 0.045 Positive: TROPI) >= 0.046 Correl ation with serial results, other cardiac markers andclinical findings is nec essary to determine the clinicalsignifi cance of this result. Results using different metho dologies should not be c omparedto one another as dillan titative results may sukumar y by method. CBC W/AUTO [id number] 14:08:00 Test Item Value Reference Range Interpretation Comments WHITE BLOOD CELL (test code = 5.93 x10 3/uL 4.5-11.0 N WBC) RED BLOOD CELL (test code = 3.74 x10 6/uL 4.00-5.60 L RBC) HEMOGLOBIN (test code = HGB) 11.7 g/dL 12.5-16.9 L HEMATOCRIT (test code = HCT) 34.7 % 37.5-50.7 L MEAN CELL VOLUME (test code = 92.8 fL 81.0-99.0 N MCV) MEAN CELL HGB (test code = MCH) 31.3 pg 27.0-33.0 N MEAN CELL HGB CONCETRATION 33.7 g/dL 33.0-37.0 N (test code = MCHC) RED CELL DISTRIBUTION WIDTH CV 13.7 % 11.5-14.5 N (test code = RDW) RED CELL DISTRIBUTION WIDTH SD 46.9 fL 37.0-54.0 N (test code = RDW-SD) PLATELET COUNT (test code = 248 x10 3/uL 150-400 N PLT) MEAN PLATELET VOLUME (test code 9.1 fL 7.0-9.0 H = MPV) NEUTROPHIL % (test code = NT%) 66.7 % 56.0-77.0 N IMMATURE GRANULOCYTE % (test 0.5 % 0.0-2.0 N code = IG%) LYMPHOCYTE % (test code = LY%) 19.4 % 14.0-32.0 N MONOCYTE % (test code = MO%) 11.1 % 4.8-9.0 H EOSINOPHIL % (test code = EO%) 1.5 % 0.3-3.7 N BASOPHIL % (test code = BA%) 0.8 % 0.0-2.0 N NUCLEATED RBC % (test code = 0.0 % 0-0 N NRBC%) NEUTROPHIL # (test code = NT#) 3.95 x10 3/uL 2.0-7.6 N IMMATURE GRANULOCYTE # (test 0.03 x10 3/uL 0.00-0.03 N code = IG#) LYMPHOCYTE # (test code = LY#) 1.15 x10 3/uL 1.0-3.8 N MONOCYTE # (test code = MO#) 0.66 x10 3/uL 0.1-0.8 N EOSINOPHIL # (test code = EO#) 0.09 x10 3/uL 0.0-0.2 N BASOPHIL # (test code = BA#) 0.05 x10 3/uL 0.0-0.2 N NUCLEATED RBC # (test code = 0.00 x10 3/uL 0.0-0.1 N NRBC#) MANUAL DIFF REQUIRED (test code NO = MDIFF) SURGICAL [id number] 08:48:00 RUN DATE: 10/17/19 [facility] *LIVE* PAGE 1 RUN TIME: 847 Specimen Inquiry RUN USER: INTERFACE PATIENT: JANNETTE RODARTE LOC: [place] U #: [id number] AGE/SX: 79/M ROOM: [facility] RE10/08/19REG DR: Uri Willams MD : 38 BED: 1 DIS: 10/16/19 STATUS: DIS IN TLOC: SPEC #: [id number] RECD: 10/15/19 STATUS: MEGAN CHAPMAN #: [id number] JENNY: 10/15/[address]: Uri Willams MD ENTERED: 10/16/19 SP TYPE: SURG SPEC OTHR DR: DOES_NOT KNOW Self Referred Patrick Nguyen MD, Imtiaz MD Chang, Bill K MD Desai, Kinjal MD Morsi, Hesham MDORDERED: GM LEVEL 4 CODES: [id number] - ARTERY, NOS COPIES TO: DOES_NOT KNOW Self Referred Patrick Nguyen MD [address] [place], [place] [address] [place] [address] Michael Nguyen MD [address] [place] [address] Bari Ellis MD [address] [facility] [address] [place] [address] Stefany Holley MD [address] [facility] [address] [facility] [address] [place] [address] Mckinley Wan MD [address] [place], [place] [address] [place] [address] Uri Willams MD [address] [facility] [address] [address] CONTINUED ONNEXT PAGE RUN DATE: 10/17/19 [facility] *LIVE* PAGE 2 RUN TIME: 847 Specimen Inquiry RUN USER: INTERFACE SPEC #: [id number] PATIENT: JANNETTE RODARTE #[id number] (Continued) PROCEDURES: LEVEL 4 (Incomplete) TISSUES: 1. ARTERY, NOS - Artery, left, side carotid plaque, segme FINAL DIAGNOSIS Artery, left, side carotid plaque,segment: Partially calcified atherosclerotic plaque. GROSS AND MICROSCOPIC GROSS EXAMINATION: Received in formalin labeled left carotid artery plaque is a 1.1 cm in length 1 cm in diameter partially fragmented calcified plaque submitted in one cassette for decalcification. MICROSCOPIC EXAMINATION: Sections of the left carotid plaque reveal an atherosclerotic plaque withnodular calcifications. POST-OP DIAGNOSIS None given PRE-OP DIAGNOSIS Left side carotid stenosis Signed SIGNATURE ON FILE Hiren Henderson Latosha ANDRES 10/17/19 0848 END OF REPORT BASIC METABOLIC [id number] 05:34:00 Test Item Value Reference Range Interpretation Comments SODIUM (test code = NA) 134 mEq/L 134-147 N POTASSIUM (test code = 4.1 mEq/L 3.4-5.0 N K) CHLORIDE (test code = 101 mEq/L 100-108 N CL) CARBON DIOXIDE (test 27 mEq/L 21-33 N code = CO2) ANION GAP (test code = 10 0-20 N GAP) GLUCOSE (test code = 93 mg/dL 70-110 N GLU) BLOOD UREA NITROGEN 12 mg/dL 7-18 N (test code = BUN) GLOMERULAR FILTRATION 207.0 70-80 H Units of measure = RATE (test code = GFR) ml/mi n/1.73 m2 CREATININE (test code = 0.4 mg/dL 0.6-1.3 L CREAT) CALCIUM (test code = 8.1 mg/dL 8.0-10.5 N CA) [id number] 05:34:00 Test Item Value Reference Range Interpretation Comments MAGNESIUM (test code = MAG) 1.80 mg/dL 1.8-2.4 N BASIC METABOLIC [id number] 05:27:00 Test Item Value Reference Range Interpretation Comments SODIUM (test code = NA) 134 mEq/L 134-147 N POTASSIUM (test code = K) 4.1 mEq/L 3.4-5.0 N CHLORIDE (test code = CL) 101 mEq/L 100-108 N CARBON DIOXIDE (test code = CO2) 27 mEq/L 21-33 N ANION GAP (test code = GAP) 10 0-20 N GLUCOSE (test code = GLU) 93 mg/dL 70-110 N BLOOD UREA NITROGEN (test code = 12 mg/dL 7-18 N BUN) GLOMERULAR FILTRATION RATE (test 70-80 code = GFR) CREATININE (test code = CREAT) mg/dL 0.6-1.3 CALCIUM (test code = CA) 8.1 mg/dL 8.0-10.5 N [id number] 05:27:00 Test Item Value Reference Range Interpretation Comments MAGNESIUM (test code = MAG) 1.80 mg/dL 1.8-2.4 N CBC W/AUTO [id number] 05:18:00 Test Item Value Reference Range Interpretation Comments WHITE BLOOD CELL (test code = 6.75 x10 3/uL 4.5-11.0 N WBC) RED BLOOD CELL (test code = 4.08 x10 6/uL 4.00-5.60 N RBC) HEMOGLOBIN (test code = HGB) 12.6 g/dL 12.5-16.9 N HEMATOCRIT (test code = HCT) 37.6 % 37.5-50.7 N MEAN CELL VOLUME (test code = 92.2 fL 81.0-99.0 N MCV) MEAN CELL HGB (test code = MCH) 30.9 pg 27.0-33.0 N MEAN CELL HGB CONCETRATION 33.5 g/dL 33.0-37.0 N (test code = MCHC) RED CELL DISTRIBUTION WIDTH CV 13.7 % 11.5-14.5 N (test code = RDW) RED CELL DISTRIBUTION WIDTH SD 46.5 fL 37.0-54.0 N (test code = RDW-SD) PLATELET COUNT (test code = 219 x10 3/uL 150-400 N PLT) MEAN PLATELET VOLUME (test code 9.2 fL 7.0-9.0 H = MPV) NEUTROPHIL % (test code = NT%) 72.7 % 56.0-77.0 N IMMATURE GRANULOCYTE % (test 0.3 % 0.0-2.0 N code = IG%) LYMPHOCYTE % (test code = LY%) 10.8 % 14.0-32.0 L MONOCYTE % (test code = MO%) 13.6 % 4.8-9.0 H EOSINOPHIL % (test code = EO%) 2.2 % 0.3-3.7 N BASOPHIL % (test code = BA%) 0.4 % 0.0-2.0 N NUCLEATED RBC % (test code = 0.0 % 0-0 N NRBC%) NEUTROPHIL # (test code = NT#) 4.90 x10 3/uL 2.0-7.6 N IMMATURE GRANULOCYTE # (test 0.02 x10 3/uL 0.00-0.03 N code = IG#) LYMPHOCYTE # (test code = LY#) 0.73 x10 3/uL 1.0-3.8 L MONOCYTE # (test code = MO#) 0.92 x10 3/uL 0.1-0.8 H EOSINOPHIL # (test code = EO#) 0.15 x10 3/uL 0.0-0.2 N BASOPHIL # (test code = BA#) 0.03 x10 3/uL 0.0-0.2 N NUCLEATED RBC # (test code = 0.00 x10 3/uL 0.0-0.1 N NRBC#) MANUAL DIFF REQUIRED (test code NO = MDIFF) [id number] 14:21:00 Test Item Value Reference Range Interpretation Comments ACT-ISTAT (test code 235 SEC 74-137 H Perform ed by certified = ACTI) 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 [facility] [id number] 13:33:00 Test Item Value Reference Range Interpretation Comments ACT-ISTAT (test code 367 SEC 74-137 H Perform ed by certified = ACTI) 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 [facility] BASIC METABOLIC [id number] 09:44:00 Test Item Value Reference Range Interpretation Comments SODIUM (test code = NA) 135 mEq/L 134-147 N POTASSIUM (test code = 3.8 mEq/L 3.4-5.0 N K) CHLORIDE (test code = 101 mEq/L 100-108 N CL) CARBON DIOXIDE (test 29 mEq/L 21-33 N code = CO2) ANION GAP (test code = 9 0-20 N GAP) GLUCOSE (test code = 98 mg/dL 70-110 N GLU) BLOOD UREA NITROGEN 12 mg/dL 7-18 N (test code = BUN) GLOMERULAR FILTRATION 160.0 70-80 H Units of measure = RATE (test code = GFR) ml/mi n/1.73 m2 CREATININE (test code = 0.5 mg/dL 0.6-1.3 L CREAT) CALCIUM (test code = 8.4 mg/dL 8.0-10.5 N CA) CBC W/AUTO [id number] 08:03:00 Test Item Value Reference Range Interpretation Comments WHITE BLOOD CELL (test code = 5.73 x10 3/uL 4.5-11.0 N WBC) RED BLOOD CELL (test code = 4.38 x10 6/uL 4.00-5.60 N RBC) HEMOGLOBIN (test code = HGB) 13.4 g/dL 12.5-16.9 N HEMATOCRIT (test code = HCT) 40.5 % 37.5-50.7 N MEAN CELL VOLUME (test code = 92.5 fL 81.0-99.0 N MCV) MEAN CELL HGB (test code = MCH) 30.6 pg 27.0-33.0 N MEAN CELL HGB CONCETRATION 33.1 g/dL 33.0-37.0 N (test code = MCHC) RED CELL DISTRIBUTION WIDTH CV 13.8 % 11.5-14.5 N (test code = RDW) RED CELL DISTRIBUTION WIDTH SD 46.7 fL 37.0-54.0 N (test code = RDW-SD) PLATELET COUNT (test code = 236 x10 3/uL 150-400 N PLT) MEAN PLATELET VOLUME (test code 9.3 fL 7.0-9.0 H = MPV) NEUTROPHIL % (test code = NT%) 62.4 % 56.0-77.0 N IMMATURE GRANULOCYTE % (test 0.3 % 0.0-2.0 N code = IG%) LYMPHOCYTE % (test code = LY%) 19.5 % 14.0-32.0 N MONOCYTE % (test code = MO%) 12.9 % 4.8-9.0 H EOSINOPHIL % (test code = EO%) 4.4 % 0.3-3.7 H BASOPHIL % (test code = BA%) 0.5 % 0.0-2.0 N NUCLEATED RBC % (test code = 0.0 % 0-0 N NRBC%) NEUTROPHIL # (test code = NT#) 3.57 x10 3/uL 2.0-7.6 N IMMATURE GRANULOCYTE # (test 0.02 x10 3/uL 0.00-0.03 N code = IG#) LYMPHOCYTE # (test code = LY#) 1.12 x10 3/uL 1.0-3.8 N MONOCYTE # (test code = MO#) 0.74 x10 3/uL 0.1-0.8 N EOSINOPHIL # (test code = EO#) 0.25 x10 3/uL 0.0-0.2 H BASOPHIL # (test code = BA#) 0.03 x10 3/uL 0.0-0.2 N NUCLEATED RBC # (test code = 0.00 x10 3/uL 0.0-0.1 N NRBC#) MANUAL DIFF REQUIRED (test code NO = MDIFF) PROTHROMBIN [id number] 06:36:00 Test Item Value Reference Range Interpretation Comments PROTHROMBIN TIME 12.5 SECONDS 9.3-12.9 N PATIENT (test code = PTP) INTERNATIONAL NORMAL 1.1 0.8-1.2 N TARGET RATIO (test code = INR BY IN DICATION INR) Indication INR1. Prophyl axis of venous thrombos is 2.0 - 3. 0 (orthopedic hernan yojana), Prophylaxis of venous thrombos is (other than hig h-risk surgery), Abbi tment of Deep Vein Thrombosis/Pulm onary Embolism, Preve ntion of systemic emb olism - Tissue heart va lves, Acute Myocardia l Infarction (to prevent systemic embo lism), Valvular heart disease, Atri al Fibrillation, Bileaflet mecha nical valve in aortic position.2. Mec hanical prosthetic valv es (high risk), 2.5 - 3.5 Presence of Lupus Anticoagu lant or Antiphospholi pid Antibodies, Pre vention of systemic e mbolism - Acute Myocard ial Infarction (t o prevent recurre nt infarct). THROMBOPLASTIN TIME [id number] 06:36:00 Test Item Value Reference Range Interpretation Comments THROMBOPLASTIN TIME 26.8 Seconds 25.0-39.5 N Ther apeutic PARTIAL (test code = Range: 50.4 - 88.3 PTT) Seconds Effective 11/20/2018 BASIC METABOLIC [id number] 04:39:00 Test Item Value Reference Range Interpretation Comments SODIUM (test code = NA) 137 mEq/L 134-147 N POTASSIUM (test code = 3.9 mEq/L 3.4-5.0 N K) CHLORIDE (test code = 103 mEq/L 100-108 N CL) CARBON DIOXIDE (test 29 mEq/L 21-33 N code = CO2) ANION GAP (test code = 9 0-20 N GAP) GLUCOSE (test code = 105 mg/dL 70-110 N GLU) BLOOD UREA NITROGEN 10 mg/dL 7-18 N (test code = BUN) GLOMERULAR FILTRATION 207.0 70-80 H Units of measure = RATE (test code = GFR) ml/mi n/1.73 m2 CREATININE (test code = 0.4 mg/dL 0.6-1.3 L CREAT) CALCIUM (test code = 8.1 mg/dL 8.0-10.5 N CA) CBC W/AUTO [id number] 04:29:00 Test Item Value Reference Range Interpretation Comments WHITE BLOOD CELL (test code = 6.11 x10 3/uL 4.5-11.0 N WBC) RED BLOOD CELL (test code = 4.33 x10 6/uL 4.00-5.60 N RBC) HEMOGLOBIN (test code = HGB) 13.5 g/dL 12.5-16.9 N HEMATOCRIT (test code = HCT) 39.4 % 37.5-50.7 N MEAN CELL VOLUME (test code = 91.0 fL 81.0-99.0 N MCV) MEAN CELL HGB (test code = MCH) 31.2 pg 27.0-33.0 N MEAN CELL HGB CONCETRATION 34.3 g/dL 33.0-37.0 N (test code = MCHC) RED CELL DISTRIBUTION WIDTH CV 13.5 % 11.5-14.5 N (test code = RDW) RED CELL DISTRIBUTION WIDTH SD 45.6 fL 37.0-54.0 N (test code = RDW-SD) PLATELET COUNT (test code = 214 x10 3/uL 150-400 N PLT) MEAN PLATELET VOLUME (test code 8.8 fL 7.0-9.0 N = MPV) NEUTROPHIL % (test code = NT%) 67.3 % 56.0-77.0 N IMMATURE GRANULOCYTE % (test 0.5 % 0.0-2.0 N code = IG%) LYMPHOCYTE % (test code = LY%) 16.5 % 14.0-32.0 N MONOCYTE % (test code = MO%) 11.3 % 4.8-9.0 H EOSINOPHIL % (test code = EO%) 4.1 % 0.3-3.7 H BASOPHIL % (test code = BA%) 0.3 % 0.0-2.0 N NUCLEATED RBC % (test code = 0.0 % 0-0 N NRBC%) NEUTROPHIL # (test code = NT#) 4.11 x10 3/uL 2.0-7.6 N IMMATURE GRANULOCYTE # (test 0.03 x10 3/uL 0.00-0.03 N code = IG#) LYMPHOCYTE # (test code = LY#) 1.01 x10 3/uL 1.0-3.8 N MONOCYTE # (test code = MO#) 0.69 x10 3/uL 0.1-0.8 N EOSINOPHIL # (test code = EO#) 0.25 x10 3/uL 0.0-0.2 H BASOPHIL # (test code = BA#) 0.02 x10 3/uL 0.0-0.2 N NUCLEATED RBC # (test code = 0.00 x10 3/uL 0.0-0.1 N NRBC#) MANUAL DIFF REQUIRED (test code NO = MDIFF) CBC W/AUTO [id number] 09:05:00 Test Item Value Reference Range Interpretation Comments WHITE BLOOD CELL (test code = 6.14 x10 3/uL 4.5-11.0 N WBC) RED BLOOD CELL (test code = 4.05 x10 6/uL 4.00-5.60 N RBC) HEMOGLOBIN (test code = HGB) 12.6 g/dL 12.5-16.9 N HEMATOCRIT (test code = HCT) 37.4 % 37.5-50.7 L MEAN CELL VOLUME (test code = 92.3 fL 81.0-99.0 N MCV) MEAN CELL HGB (test code = MCH) 31.1 pg 27.0-33.0 N MEAN CELL HGB CONCETRATION 33.7 g/dL 33.0-37.0 N (test code = MCHC) RED CELL DISTRIBUTION WIDTH CV 14.0 % 11.5-14.5 N (test code = RDW) RED CELL DISTRIBUTION WIDTH SD 47.4 fL 37.0-54.0 N (test code = RDW-SD) PLATELET COUNT (test code = 190 x10 3/uL 150-400 N PLT) MEAN PLATELET VOLUME (test code 9.6 fL 7.0-9.0 H = MPV) NEUTROPHIL % (test code = NT%) 71.6 % 56.0-77.0 N IMMATURE GRANULOCYTE % (test 0.5 % 0.0-2.0 N code = IG%) LYMPHOCYTE % (test code = LY%) 15.3 % 14.0-32.0 N MONOCYTE % (test code = MO%) 9.9 % 4.8-9.0 H EOSINOPHIL % (test code = EO%) 2.0 % 0.3-3.7 N BASOPHIL % (test code = BA%) 0.7 % 0.0-2.0 N NUCLEATED RBC % (test code = 0.0 % 0-0 N NRBC%) NEUTROPHIL # (test code = NT#) 4.40 x10 3/uL 2.0-7.6 N IMMATURE GRANULOCYTE # (test 0.03 x10 3/uL 0.00-0.03 N code = IG#) LYMPHOCYTE # (test code = LY#) 0.94 x10 3/uL 1.0-3.8 L MONOCYTE # (test code = MO#) 0.61 x10 3/uL 0.1-0.8 N EOSINOPHIL # (test code = EO#) 0.12 x10 3/uL 0.0-0.2 N BASOPHIL # (test code = BA#) 0.04 x10 3/uL 0.0-0.2 N NUCLEATED RBC # (test code = 0.00 x10 3/uL 0.0-0.1 N NRBC#) MANUAL DIFF REQUIRED (test code NO = MDIFF) [id number] 05:25:00 Test Item Value Reference Range Interpretation Comments GLUBED (test code = 86 MG/DL 70-110 N Performe d by certified GLUBED) 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 HDL CHOLESTEROL 60.0 mg/dL 32-72 N (test code = HDL) LIPOPROTEIN LDL 59 mg/dL 0-100 N <100 OPT [id number] (test code = LDL) NEAR OPTI MAL/ABOVE [id number] 89 HIGH>IO=547 VE RY HIGH*Guidelines provided by the National Choles terol EducationProgra m Adult Treatment Panel III COMMENTS: [facility] [id number] 15:02:00 Test Item Value Reference Range Interpretation Comments TOTAL PROTEIN (test code = PROT) 6.7 g/dL 6.4-8.2 N ALBUMIN (test code = ALB) 3.00 g/dL 3.4-5.0 L BILIRUBIN TOTAL (test code = BILT) 0.8 MG/DL <1.5 N BILIRUBIN DIRECT (test code = 0.30 MG/DL 0.0-0.30 N BILD) BILIRUBIN INDIRECT (test code = 0.50 MG/DL BILIND) SGOT/AST (test code = AST) 27 IUnit/L 15-37 N SGPT/ALT (test code = ALT) 24 IUnit/L 15-65 N ALKALINE PHOSPHATASE TOTAL (test 86 IUnit/L 20-125 N code = ALKP) COMMENTS: Fasting in [id number] 15:02:00 Test Item Value Reference Range Interpretation Comments MAGNESIUM (test code = MAG) 1.60 mg/dL 1.8-2.4 L COMMENTS: Fasting in [id number]%2019-10-09 12:40:00 Test Item Value Reference Range Interpretation Comments HGBA1C% (test code = HGBA1C%) 5.3 %A1C 4.8-6.0 N - MRI BRAIN W/O [id number] 10:56:00 FAX: Parvin Steve [phone] [place]: St: ADM Name: JANNETTE RODARTE [facility] : 1941 Age/S: 78/M [address] [place] [address] Blvd Unit#: [id number] Loc: [place] [address] Phys: Parvin Abraham MD Acct: [id number] Dis Date: Status: ADM IN PHONE #: [phone] Exam Date: 10/09/2019 1030 FAX #: [phone] Reason: obtain at or after 24 hours post tpa EXAMS: CPT CODE: [id number] MRI BRAIN W/O CONT 42821 MRI brain without contrast 10/09/2019 HISTORY: Recent TPA administration. PROCEDURE: Multiplanar multisequence imaging of the brain is performed without contrast Comparison is made to CT head performed 10/09/2019 FINDINGS: No acute hemorrhage, midline shift, extra-axial fluid collection, or hydrocephalus is present. There is moderate atrophy. There are mild areas of increased FLAIR signal inthe cerebral white matter. Craniocervical junction and corpus callosum are within normal limits. Increased FLAIR signal involving the brainstem is noted. There is no blooming artifact on the heme sequence to suggest remote hemorrhage. The visualized mastoid air cells are clear. There is no paranasal sinus air-fluid level. There is restricted diffusion involving the posterior aspect of the left basal ganglia/insula. IMPRESSION: 1. Acute/subacute ischemia involving posterior left basal ganglia/insula. 2. Moderate atrophy and mild chronic microvascular ischemic changes. 3. No acute intracranial hemorrhage. SL: [id number] at 1056 Reported and signed by: Jesse Abreu M.D. CC: Parvin Grimm MD Technologist: Ambrose Levi, RT(R)(CT)(MR) Trnscrd Date/Time/By: 10/09/2019 (1056) : By: [email or web address] Orig Print D/T: S: 10/09/2019 (1100) PAGE 1 Signed ReportBASIC METABOLIC [id number] 10:14:00 Test Item Value Reference Range Interpretation Comments SODIUM (test code = NA) 138 mEq/L 134-147 N POTASSIUM (test code = 3.7 mEq/L 3.4-5.0 N K) CHLORIDE (test code = 102 mEq/L 100-108 N CL) CARBON DIOXIDE (test 33 mEq/L 21-33 N code = CO2) ANION GAP (test code = 7 0-20 N GAP) GLUCOSE (test code = 115 mg/dL 70-110 H GLU) BLOOD UREA NITROGEN 9 mg/dL 7-18 N (test code = BUN) GLOMERULAR FILTRATION 160.0 70-80 H Units of measure = RATE (test code = GFR) ml/mi n/1.73 m2 CREATININE (test code = 0.5 mg/dL 0.6-1.3 L CREAT) CALCIUM (test code = 8.6 mg/dL 8.0-10.5 N CA) CBC W/AUTO [id number] 09:04:00 Test Item Value Reference Range Interpretation Comments WHITE BLOOD CELL (test code = 5.75 x10 3/uL 4.5-11.0 N WBC) RED BLOOD CELL (test code = 4.40 x10 6/uL 4.00-5.60 N RBC) HEMOGLOBIN (test code = HGB) 13.6 g/dL 12.5-16.9 N HEMATOCRIT (test code = HCT) 40.2 % 37.5-50.7 N MEAN CELL VOLUME (test code = 91.4 fL 81.0-99.0 N MCV) MEAN CELL HGB (test code = MCH) 30.9 pg 27.0-33.0 N MEAN CELL HGB CONCETRATION 33.8 g/dL 33.0-37.0 N (test code = MCHC) RED CELL DISTRIBUTION WIDTH CV 14.0 % 11.5-14.5 N (test code = RDW) RED CELL DISTRIBUTION WIDTH SD 46.5 fL 37.0-54.0 N (test code = RDW-SD) PLATELET COUNT (test code = 197 x10 3/uL 150-400 N PLT) MEAN PLATELET VOLUME (test code 9.8 fL 7.0-9.0 H = MPV) NEUTROPHIL % (test code = NT%) 66.6 % 56.0-77.0 N IMMATURE GRANULOCYTE % (test 0.3 % 0.0-2.0 N code = IG%) LYMPHOCYTE % (test code = LY%) 17.7 % 14.0-32.0 N MONOCYTE % (test code = MO%) 13.2 % 4.8-9.0 H EOSINOPHIL % (test code = EO%) 1.7 % 0.3-3.7 N BASOPHIL % (test code = BA%) 0.5 % 0.0-2.0 N NUCLEATED RBC % (test code = 0.0 % 0-0 N NRBC%) NEUTROPHIL # (test code = NT#) 3.82 x10 3/uL 2.0-7.6 N IMMATURE GRANULOCYTE # (test 0.02 x10 3/uL 0.00-0.03 N code = IG#) LYMPHOCYTE # (test code = LY#) 1.02 x10 3/uL 1.0-3.8 N MONOCYTE # (test code = MO#) 0.76 x10 3/uL 0.1-0.8 N EOSINOPHIL # (test code = EO#) 0.10 x10 3/uL 0.0-0.2 N BASOPHIL # (test code = BA#) 0.03 x10 3/uL 0.0-0.2 N NUCLEATED RBC # (test code = 0.00 x10 3/uL 0.0-0.1 N NRBC#) MANUAL DIFF REQUIRED (test code NO = MDIFF) - CT HEAD/BRAIN W/O [id number] 04:58:00 Name: JANNETTE RODARTE [facility] : 1941 Age/S: 78 / M [address] [place] [address] Unit #: [id number] Loc: [facility] [id number] Phys: Parvin Abraham MD Acct: [id number] Dis Date: Status: ADM IN PHONE #: [phone] Exam Date: 10/09/2019 0436 FAX #: [phone] Reason: Stroke T hrombolytic Alteplase (tPA) EXAMS: CPTCODE: [id number] CT HEAD/BRAIN W/O CONT 92080 STUDY: - CT HEAD/BRAIN W/O CONT 10/09/2019 6:59 AM Ordering Physician: DRISS Messinaatidominick Name: JANNETTE RODARTE MR: [id number] : 1941; Age: 78 years y/o Male Clinical Indication: Stroke Thrombolytic Alteplase (tPA) Comparison: 10/08/2019 TECHNIQUE: Multiple contiguous transaxial noncontrast CT images were obtained through the head. Coronal and sagittal reformatted images were prepared. CT imaging performed at this location utilizes radiation dose optimization techniques which include one or more of the following: -Automated exposure control -Adjustment of the mA and/or kV according to patient size -Use of iterative reconstruction technique CT Radiation Dose DLP: 1145.60 mGy-cm FINDINGS: BRAIN PARENCHYMA:Mild to moderate diffuse atrophy is present associated with mild nonspecific periventricular low attenuation most consistent with old microangiopathic ischemic change. Fairly stable ill-defined low-attenuation seen in the left insula again consistent with an acute infarction. No acute intracranial hemorrhage, extra-axial fluid collection, mass effect, or midline shift. Mild to moderate calcification in both internal carotid artery siphons. VENTRICLES: The lateral ventricles, third ventricle, fourth ventricle, and basilar cisterns are appropriate for degree of atrophy present. PARANASAL SINUSES: Mild diffuse mucoperiosteal thickening in the ethmoid sinus and the right maxillary sinus. The visualized portions PAGE 1 Signed Report (CONTINUED) Name: JANNETTE RODARTE [facility] : 1941 Age/S: 78 / M [address] [place], [place] [address]vd Unit #: [id number] Loc: [place] [address] Phys: Parvin Abraham MD Acct:[id number] Dis Date: Status: ADM IN PHONE #: [phone] Exam Date: 10/09/2019435 FAX #: [phone] Reason: Stroke Th rombolytic Alteplase (tPA) EXAMS: CPT CODE: [id number] CT HEAD/BRAIN W/O CONT 66519 <Continued> of the remaining paranasal sinuses are clear. MASTOIDS: Clear. ORBITS: The visualized portions of the orbits are normal. SOFT TISSUES: No significant abnormality. SKULL: No acute fracture or suspicious osseous lesion. IMPRESSION: Mild to moderate diffuse atrophy is present associated with mild nonspecific periventricular low attenuation most consistent with old microangiopathic ischemic change. Fairly stable ill-defined low-attenuation seen in the left insula again consistent with acute infarction. No interval acute intracranial abnormality or hemorrhage. Mild chronic sinusitis. SL: TPAINTER-H at 0458 Reported and signed by: Km Phan M.D. 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[facility] - XR KNEE 1 OR 2 V [id number] 14:07:00 FAX: Michael Mullins MD [place]: St: ADM Name: JANNETTE RODARTE [facility] : 1941 Age/S: 78/M [address] [place] [address] Bl Unit#: [id number] Loc: [address] [address] Phys: Michael Nguyen MD Acct: [id number] Dis Date: Status: ADM IN PHONE #: [phone] Exam Date: 10/08/2019 1401 FAX #: [phone] Reason: Swelling and pain right knee/Effusion EXAMS: CPT CODE: [id number] XR KNEE 1 OR 2 [place] [address] RIGHT KNEE 2 VIEWS 10/08/2019 COMPARISON: None CLINICAL HISTORY: Swelling and pain right knee/Effusion FINDINGS: No acute fracture or dislocation is noted. Moderate sized effusion noted in the suprapatellar recess. Vascular calcifications and vascular graft noted at the level of the distal femur. There is mild joint space narrowing and marginal osteophyte formation in the rae lofemoral compartment. Enthesophyte formation is seen involving the patella. Multiple surgical clips are seen in the posterior medial soft tissues. IMPRESSION: No acute osseous abnormality. Knee joint effusion. Postoperative changes. at 1407 Reported and signed by: Puneet Garner M.D. 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 [facility] COMPREHENSIVE METABOLIC [id number] 08:58:00 Test Item Value Reference Range Interpretation Comments SODIUM (test code = NA) 137 mEq/L 134-147 N POTASSIUM (test code = 3.6 mEq/L 3.4-5.0 N K) CHLORIDE (test code = 103 mEq/L 100-108 N CL) CARBON DIOXIDE (test 30 mEq/L 21-33 N code = CO2) ANION GAP (test code = 8 0-20 N GAP) GLUCOSE (test code = 101 mg/dL 70-110 N GLU) BLOOD UREA NITROGEN 11 mg/dL 7-18 N (test code = BUN) GLOMERULAR FILTRATION 160.0 70-80 H Units of measure = RATE (test code = GFR) ml/mi n/1.73 m2 CREATININE (test code = 0.5 mg/dL 0.6-1.3 L CREAT) TOTAL PROTEIN (test 6.4 g/dL 6.4-8.2 N code = PROT) ALBUMIN (test code = 3.00 g/dL 3.4-5.0 L ALB) CALCIUM (test code = 8.3 mg/dL 8.0-10.5 N CA) BILIRUBIN TOTAL (test 0.7 MG/DL <1.5 N code = BILT) SGOT/AST (test code = 22 IUnit/L 15-37 N AST) SGPT/ALT (test code = 25 IUnit/L 15-65 N ALT) ALKALINE PHOSPHATASE 88 IUnit/L 20-125 N TOTAL (test code = ALKP) CBC W/AUTO [id number] 08:41:00 Test Item Value Reference Range Interpretation Comments WHITE BLOOD CELL (test code = 7.02 x10 3/uL 4.5-11.0 N WBC) RED BLOOD CELL (test code = 4.37 x10 6/uL 4.00-5.60 N RBC) HEMOGLOBIN (test code = HGB) 13.3 g/dL 12.5-16.9 N HEMATOCRIT (test code = HCT) 40.0 % 37.5-50.7 N MEAN CELL VOLUME (test code = 91.5 fL 81.0-99.0 N MCV) MEAN CELL HGB (test code = MCH) 30.4 pg 27.0-33.0 N MEAN CELL HGB CONCETRATION 33.3 g/dL 33.0-37.0 N (test code = MCHC) RED CELL DISTRIBUTION WIDTH CV 13.8 % 11.5-14.5 N (test code = RDW) RED CELL DISTRIBUTION WIDTH SD 46.5 fL 37.0-54.0 N (test code = RDW-SD) PLATELET COUNT (test code = 186 x10 3/uL 150-400 N PLT) MEAN PLATELET VOLUME (test code 8.9 fL 7.0-9.0 N = MPV) NEUTROPHIL % (test code = NT%) 74.7 % 56.0-77.0 N IMMATURE GRANULOCYTE % (test 0.4 % 0.0-2.0 N code = IG%) LYMPHOCYTE % (test code = LY%) 12.5 % 14.0-32.0 L MONOCYTE % (test code = MO%) 11.8 % 4.8-9.0 H EOSINOPHIL % (test code = EO%) 0.3 % 0.3-3.7 N BASOPHIL % (test code = BA%) 0.3 % 0.0-2.0 N NUCLEATED RBC % (test code = 0.0 % 0-0 N NRBC%) NEUTROPHIL # (test code = NT#) 5.24 x10 3/uL 2.0-7.6 N IMMATURE GRANULOCYTE # (test 0.03 x10 3/uL 0.00-0.03 N code = IG#) LYMPHOCYTE # (test code = LY#) 0.88 x10 3/uL 1.0-3.8 L MONOCYTE # (test code = MO#) 0.83 x10 3/uL 0.1-0.8 H EOSINOPHIL # (test code = EO#) 0.02 x10 3/uL 0.0-0.2 N BASOPHIL # (test code = BA#) 0.02 x10 3/uL 0.0-0.2 N NUCLEATED RBC # (test code = 0.00 x10 3/uL 0.0-0.1 N NRBC#) MANUAL DIFF REQUIRED (test code NO = MDIFF) [id number] 08:40:00 Test Item Value Reference Range Interpretation Comments GLUBED (test code = 88 MG/DL 70-110 N Performe d by certified GLUBED) 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 [facility] - CT HEAD/BRAIN W/O [id number] 03:14:00 Name: JANNETTE RODARTE [facility] : 1941 Age/S: 78 / M [address] [place] [address] Unit #: [id number] Loc: [place] [id number] Phys: Juan James MD Acct: [id number] Dis Date: Status: ADM IN PHONE #: [phone] Exam Date: 10/08/2019 0254 FAX #: [phone] Reason: PARESTHE CHE EXAMS: CPTCODE: [id number] CT HEAD/BRAIN W/O CONT 98758 STUDY: - CT HEAD/BRAIN W/O CONT 10/08/2019 2:34 AM Ordering Physician: Juan James MD Patient Name: JANNETTE RODARTE MR: [id number] : 1941; Age: 78 years y/o Male Clinical Indication: PARESTHESIA Comparison: 3 2 TECHNIQUE: Multiple contiguous transaxial noncontrast CT images were obtained through the head. Coronal and sagittal reformatted images were prepared. CT imaging performed at this location utilizes radiation dose optimization techniques which include one or more of the following: -Automated exposure control -Adjustment of the mA and/or kV according to patient size -Use of iterative reconstruction technique CT Radiation Dose DLP: 419.70 mGy-cm FINDINGS: BRAIN PARENCHYMA: Mild to moderate diffuse atrophy is present associated with mild nonspecific periventricular low attenuation most consistent with old microangiopathic ischemic change. Ill- defined low-attenuation in the leftinsula with loss of king[place]-white matter junction in some regions suspicious for acute infarction. No evidence of acute intracranial hemorrhage, mass lesion, mass effect, midlineshift, or extra-axial fluid collection. Mild to moderate calcification of both internal carotid artery siphons. Empty sella. VENTRICLES: The lateral ventricles, third ventricle, fourth ventricle, and basilar cisterns are appropriate for degree of a trophy present. PAGE 1 Signed Report (CONTINUED) Name: JANNETTE RODARTE : 1941 Age/S: 78 / M [address] [place] [address] Unit #: [id number] Loc: [place] [address] Phys: Juan James MD Acct: [id number] Dis Date: Status: ADM IN PHONE #: [phone] Exam Date: 10/08/2019253 FAX #: [phone] Reason: PARESTHESIA EXAMS: CPT CODE: [id number] CT HEAD/BRAIN W/O CONT 18562 <Continued> PARANASAL SINUSES: Mild diffuse mucoperiosteal thickening in the ethmoid sinus and the right maxillary sinus. The visualized portions of the remaining paranasal sinuses are clear. MASTOIDS: Clear. ORBITS: The visualized portions of the orbits are normal. SOFT TISSUES: No significant abnormality. SKULL: No acute fracture or suspicious osseous lesion. IMPRESSION: Mild to moderate diffuse atrophy is present associated with mild nonspecific periventricular low attenuation most consistent with old microangiopathic ischemic change. Ill-defined low-attenuation in the left insula with loss of kingston-white matter junction in some regions suspicious for acute infarction. 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 No acute intracranial hemorrhage or significant mass effect. Mild chronic sinusitis. SL: TPAINTER-H at 0314 Reported and signed by: Km Phan M.D. CC: Juna James MD Technologist:Claude Prabhakar, RT(R)(CT) CTDI: DLP: Trnscb Date/Time: 10/08/2019 (313) [email or web address] Orig Print D/T: S: 10/08/2019 (316) PAGE 2 Signed Report- CT ANGIO HEAD 2019-10-08 00:47:00 Name: JANNETTE RODARTE [place] : 1941 Age/S: 78 / M [address] Unit #: [id number] Loc: [place] [address] Phys: Rashid Green MD Acct: [id number] Dis Date: Status: ADM IN PHONE #: [phone] Exam Date: 10/08/2019 0018 FAX #: Reason: CVA NIH20 EXAMS: CPT: [id number] CT ANGIO HEAD [address]90 EXAM: - CTANGIO NECK, - CT ANGIO HEAD HISTORY: CVA NIH 20 Location code:C3 TECHNIQUE: Axial CT images were obtained from the thoracic inlet to the vertex after intravenous contrast utilizing CTA protocol. Coronal and sagittal maximum intensity projection images are provided. One or more of the following dose reduction techniques were used: Automated exposure control, adjustment of the mA and/or kV according to patient size, and/or utilization of iterative reconstruction technique. DLP: 1019 mGy-cm. COMPARISON: None available time of interpretation. FINDINGS: CTA NECK: The origins of the great vessels from the aortic arch are not within the dzphj-mr-xswf. There is high-grade stenosis approaching 80% of the right internal carotid artery origin over a length of 1.4 cm. There is short segment high-grade stenosis of the left internal carotid artery origin of 90% with heavily calcified left carotid bulb and short segment occlusion of the left internal carotid artery origin cannot be excluded. There is shelflike plaque of the left internal carotid artery just beyond its origin creating 50% stenosis. The cavernous internal carotid arteries are heavily calcified. The common carotid arteries are widely patent. Vertebral arteries appear widely patent. 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 The anterior cerebral and right middle cerebral arteries are widely patent. Small anterior communicating artery is present. Posterior communicating arteries seen on the right. The posterior cerebral arteries and basilar artery are patent. Coronal and sagittal maximum intensity projection images confirm these findings. IMPRESSION: PAGE 1 Signed Report (CONTINUED) Name: JANNETTE RODARTE : 1941ge/S: 78 / M [address] Unit #: [id number] Loc: [place] [address] Phys: Rashid Green MD Acct: [id number] Dis Date: Status: ADM IN PHONE#: [phone] Exam Date: 10/08/2019 0018 FAX #: Reason: CVA NIH 20 EXAMS: CPT: [id number] CT ANGIO HEAD 40094 <Continued> 1. 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 2. There is high-grade stenosis approaching 80% of the right internal carotid artery at its origin over a length of 1.4 cm. 3. There is short segment high- grade stenosis of the left internal carotid artery approaching 90% with heavy calcification at the left carotid bulb and short segment occlusion at the origin of the left internal carotid origin is not excluded. It should be noted that there is shelflike plaque of the left internal carotid artery just beyond its origin creating 50% stenosis and could be at risk for embolic phenomenon if endovascular intervention is undertaken. Note: Degree of stenosis, if present, was calculated utilizing NASCET criteria.. Dr. Callaway called these findings to Rashid Green MDon 10/08/2019 12:43 AM FOR INTERNAL CODING PURPOSES ONLY RESULT CODE: CVR at 0047 Reported and signed by: Steve Callaway MD CC: Rashid Green MD; Frandy Brito MD; Wendy Kaminski MD Te chnologist:Javi Kaur, RT(R); Pancho Amin, CTDI: DLP: Trnscb Date/Time: 10/08/2019 (46) [email or web address] Orig Print D/T: S: 10/08/2019 (005) PAGE 2 Signed Report- CT ANGIO [id number] 00:47:00 Name: JANNETTE RODARTE [facility] : 1941 Age/S: 78 / M [address] [address] Unit #: [id number] Loc: [place] [address] Phys: Rashid Green MD Acct: [id number] Dis Date: Status: ADM IN PHONE #: [phone] Exam Date: 10/08/201927 FAX #: Reason: CVA NIH20 EXAMS: CPT: [id number] CT ANGIO NECK [address] EXAM: - CTANGIO NECK, - CT ANGIO HEAD HISTORY: CVA NIH 20 Location code:C3 TECHNIQUE: Axial CT images were obtained from the thoracic inlet to the vertex after intravenous contrast utilizing CTA protocol. Coronal and sagittal maximum intensity projection images are provided. One or more of the following dose reduction techniques were used: Automated exposure control, adjustment of the mA and/or kV according to patient size, and/or utilization of iterative reconstruction technique. DLP: 1019 mGy-cm. COMPARISON: None available time of interpretation. FINDINGS: CTA NECK: The origins of the great vessels from the aortic arch are not within the dexlv-rd-gmuf. There is high-grade stenosis approaching 80% of the right internal carotid artery origin over a length of 1.4 cm. There is short segment high-grade stenosis of the left internal carotid artery origin of 90% with heavily calcified left carotid bulb and short segment occlusion of the left internal carotid artery origin cannot be excluded. There is shelflike plaque of the left internal carotid artery just beyond its origin creating 50% stenosis. The cavernous internal carotid arteries are heavily calcified. The common carotid arteries are widely patent. Vertebral arteries appear widely patent. 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 The anterior cerebral and right middle cerebral arteries are widely patent. Small anterior communicating artery is present. Posterior communicating arteries seen on the right. The posterior cerebral arteries and basilar artery are patent. Coronal and sagittal maximum intensity projection images confirm these findings. IMPRESSION: PAGE 1 Signed Report (CONTINUED) Name: [place]NETTE RODARTEland : [birth year]Age/S: 78 / M [address] Unit #: [id number] Loc: [place] [address] Phys: Rashid Green MD Acct: [id number] Dis Date: Status: ADM IN PHONE#: [phone] Exam Date: 10/08/2019 0028 FAX #: Reason: CVA NIH 20 EXAMS: CPT: [id number] CT ANGIO NECK [address]164 <Continued> 1. 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 2. There is high-grade stenosis approaching 80% of the right internal carotid artery at its origin over a length of 1.4 cm. 3. There is short segment high- grade stenosis of the left internal carotid artery approaching 90% with heavy calcification at the left carotid bulb and short segment occlusion at the origin of the left internal carotid origin is not excluded. It should be noted that there is shelflike plaque of the left internal carotid artery just beyond its origin creating 50% stenosis and could be at risk for embolic phenomenon if endovascular intervention is undertaken. Note: Degree of stenosis, if present, was calculated utilizing NASCET criteria.. Dr. Callaway called these findings to Carlos Ordoñez 10/08/2019 12:43 AM FOR INTERNAL CODING PURPOSES ONLY RESULT CODE: CVR at 0047 Reported and signed by: Steve Callaway MD CC: Rashid Green MD; Frandy Brito MD; Wendy Kaminski MD Te chnologist:Javi Kaur, RT(R); Pancho Amin, CTDI: DLP: Trnscb Date/Time: 10/08/2019 (46) [email or web address] Orig Print D/T: S: 10/08/2019 (005) PAGE 2 Signed Report- CT HEAD/BRAIN W/O CONT 2019-10-07 23:57:00 Name: JANNETTE RODARTE Formerly [facility] : 1941 Age/S: 78 / M [address] [address] Unit #: [id number] Loc: [place] [address] Phys: Rashid Green MD Acct: [id number] Dis Date: Status: ADM IN PHONE #: [phone] Exam Date: 10/07/20192351 FAX #: Reason: stroke sx EXAMS: CPT: [id number] CT HEAD/BRAIN W/O CONT 32367 CT SCAN OF THE HEAD WITHOUT CONTRAST Dictation Location: N13 CLINICAL HISTORY: Code stroke TECHNIQUE: Helical CT was performed from the skull base to the vertex without IV contrast using 5mm slice thicknesses. Exam was performed within 24 hours of the patient's arrival to the facility. Coronal and sagittal images were reconstructed. Exam performed without IV contrast has limited sensitivity for detection of soft tissue mass or inflammation. This exam was performed according to our departmental dose optimization program, which includes automated exposure control, adjustment of the mA and/ or KV according to patientsize and/or use of iterative reconstruction technique. DLP 804 mGy*cm Comparison study 3 hours prior October 07, 2019 FINDINGS: The visualized sinuses are clear. The visualized bony structures are normal. There is no evidence of epidural, subdural, or intraparenchymal hematoma. There is mild cortical volume loss. There is mild hypodensity in the deep white matter consistent with microvascular white matter change. There is no evidence of mass, mass effect, fluid collection, hemorrhage, or evolving infarction. IMPRESSION: 1. No acute findings. Mild cortical atrophy and microvascular white matter change. 2. Findings were called to Dr. Green at 2356 hours. FOR INTERNAL CODING PURPOSES ONLY RESULT CODE: CVR at 2357 Reported and signed by: Adrianna Faustin M.D. PAGE 1 Signed Report (CONTINUED) Name: JANNETTE RODARTE Nabila : 1941 Age/S: 78 / M [address] Unit #: [id number] Loc: [place] [address] Phys: Rashid Green MD Acct: [id number] Dis Date: Status: ADM IN PHONE #: [phone] Exam Date: 10/07/20192 FAX #: Reason: stroke sx EXAMS: CPT: [id number] CT HEAD/BRAIN W/O CONT 87537 <Continued> CC: Rashid Green MD; Frandy Brito MD; Wendy Laura MD Technologist:Javi Kaur, RT(R); Pancho Amin, CTDI: DLP: Trnscb Date/Time: 10/07/2019 (0237) [email or web address] Orig Print D/T: S: 10/08/2019 (0001) PAGE 2 SignedReportUA RFLX MICR CULT IF INDICATED 2019-10-07 20:36:00 Test Item Value Reference Range Interpretation Comments UA COLOR (test code = YELLOW discript YEL/STRAW COLU) UA APPEARANCE (test code CLEAR discript CLEAR = APPU) UA GLUCOSE DIPSTICK (test NEGATIVE mg/dL NEG code = DGLUU) UA BILIRUBIN DIPSTICK 1+ mg/dL NEG A (test code = BILU) UA KETONE DIPSTICK (test NEGATIVE mg/dL NEG code = KETU) UA SPECIFIC GRAVITY (test 1.020 SG 1.005-1.030 code = SGU) UA BLOOD DIPSTICK (test NEGATIVE mg/DL NEG code = BETHANY) UA PH DIPSTICK (test code 6.0 pH UNITS 5.0-7.0 = IVY) UA PROTEIN DIPSTICK (test TRACE mg/dL NEG A code = PROU) UA UROBILINIOGEN DIPSTICK 1.0 mg/dL <2.0 (test code = URO) UA NITRITE DIPSTICK (test NEGATIVE SCREEN NEG code = NEO) UA LEUKOCYTE ESTERASE NEGATIVE Leuk/mcL NEGATIVE DIPSTICK (test code = LEUU) UA WBC (test code = WBCU) 1-3 #WBC/HPF 0-3 UA RBC (test code = RBCU) NONE SEEN #RBC/HPF 0-3 UA BACTERIA (test code = NONE SEEN /HPF NONE-TRACE BACU) UA SQUAMOUS CELLS (test OCCASIONAL /HPF NONE code = SQU) UA CULTURE NEEDED? (test NO, WBC<10 Criteria Culture CHK code = UACULT) SOURCE OF URINE: CLEAN CATCHIndication for culture: Delirium-if no other src UA RFLX MICR CULT IF [id number] 20:35:00 Test Item Value Reference Range Interpretation Comments UA COLOR (test code = COLU) YELLOW discript YEL/STRAW UA APPEARANCE (test code = CLEAR discript CLEAR APPU) UA GLUCOSE DIPSTICK (test NEGATIVE mg/dL NEG code = DGLUU) UA BILIRUBIN DIPSTICK (test 1+ mg/dL NEG A code = BILU) UA KETONE DIPSTICK (test NEGATIVE mg/dL NEG code = KETU) UA SPECIFIC GRAVITY (test 1.020 SG 1.005-1.030 code = SGU) UA BLOOD DIPSTICK (test NEGATIVE mg/DL NEG code = BETHANY) UA PH DIPSTICK (test code = 6.0 pH UNITS 5.0-7.0 IVY) UA PROTEIN DIPSTICK (test TRACE mg/dL NEG A code = PROU) UA UROBILINIOGEN DIPSTICK 1.0 mg/dL <2.0 (test code = URO) UA NITRITE DIPSTICK (test NEGATIVE SCREEN NEG code = NEO) UA LEUKOCYTE ESTERASE NEGATIVE Leuk/mcL NEGATIVE DIPSTICK (test code = LEUU) UA CULTURE NEEDED? (test Criteria Culture CHK code = UACULT) SOURCE OF URINE: CLEAN CATCHIndication for culture: Delirium-if no other src PROTHROMBIN [id number] 20:18:00 Test Item Value Reference Range Interpretation Comments PT PATIENT (test code = PTP) 11.3 SECONDS 9.3-12.9 N INTERNATIONAL NORMAL RATIO 1.00 INR Unit 0.8-1.2 N (test code = INR) THROMBOPLASTIN TIME [id number] 20:18:00 Test Item Value Reference Range Interpretation Comments THROMBOPLASTIN TIME PARTIAL 28.7 SECONDS 26-35 N (test code = PTT) [id number] 20:14:00 Test Item Value Reference Range Interpretation Comments TROPONIN-I (test < 0.015 NG/ML 0.000-0.045 N Negative: </= 0.045 code = TROPI) Positive: >/= 0.046 Correlation wit h serial results, other cardiac markers, and cl inical findings is nec essary to determine the c linical significance of this result. Quantit ative results using d ifferent methodologies s hould not be compared to one another as nume rical results may sukumar yby method. Completed by Nursing: NOBASIC METABOLIC [id number] 20:13:00 Test Item Value Reference Range Interpretation Comments SODIUM (test code = NA) 138 mmol/L 134-147 N POTASSIUM (test code = 3.7 mmol/L 3.4-5.0 N K) CHLORIDE (test code = 102 mmol/L 100-108 N CL) CARBON DIOXIDE (test 30 mmol/L 21-32 N code = CO2) ANION GAP (test code = 6.0 GAP calc 4.0-15.0 N GAP) GLUCOSE (test code = 131 MG/DL 70-110 H GLU) BLOOD UREA NITROGEN 14 MG/DL 7-18 N (test code = BUN) GLOMERULAR FILTRATION >=60 max estimate >60 RATE (test code = GFR) estGFR CREATININE (test code = 0.8 MG/DL 0.8-1.3 N CREAT) CALCIUM (test code = CA) 8.9 MG/DL 8.5-10.1 N - CT HEAD/BRAIN W/O [id number] 20:04:00 Name: JANNETTE RODARTE Formerly [facility] : 1941 Age/S: 78 / M [address] Unit #: [id number] Loc: [place] [address] Phys: Rashid Green MD Acct: [id number] Dis Date: Status: PRE ER PHONE #: [phone] Exam Date: 10/07/20191954 FAX #: Reason: Code Str stanislaw EXAMS: CPT: [id number] CT HEAD/BRAIN W/O CONT 02893 EXAM: - CTHEAD/BRAIN W/O CONT HISTORY: Code Stroke LOCATION: R 16 COMPARISON: None available time of interpretation. TECHNIQUE: Axial tomograms through thebrain were obtained without intravenous contrast. Coronal and sagittal reformatted images are provided. All CT scans are performed using radiation dose reduction technique. Technical factors are evaluated and adjusted to insure appropriate moderation of exposure. Automateddose management technology is applied to adjust the radiation dose to minimize exposure while achieving a diagnostic quality image. FINDINGS: Periventricular and deep white matter hypodensities are identified indicative of chronic microvascular ischemic changes. No hypodensity suggesting acute cerebral infarction is identified, however MRI is more sensitive if this diagnosis is clinically suspected. No intracranial hemorrhage or extra-axial collection is identified. There is no mass or mass effect. There is diffuse prominence of the extra- axial spaces and ventricles. The orbits are unremarkable. The visualized paranasal sinuses and mastoid air cells are clear. No acute fracture is present. IMPRESSION: 1. No acute intracranial abnormality. 2. Chronic microvascular ischemic changes. Findings were communicated to Rashid Green MD by telephone on 10/07/2019 8:04 PM. FORINTERNAL CODING PURPOSES ONLY RESULT CODE: CVR PAGE 1 Signed Report (CONTINUED) Name: JANNETTE RODARTE : 1941 Age/S: 78 / M [address] [address] Unit #: [id number] Loc: [place] [address] Phys: Rashid Green MD Acct: [id number] Dis Date: Status: PRE ER PHONE #: [phone] Exam Date: 10/07/20191954 FAX #: Reason: Code Stroke EXAMS : CPT: [id number] CT HEAD/BRAIN W/O CONT 66231 <Continued> at 2004 Reported and signed by: Jaky Hawk MD CC: Rashid Green MD; Wendy Kaminski MD Technologist:America Faustin RT(R)(CT) CTDI: DLP: Trnscb Date/Time: 10/07/2019 (2003) [email or web address] Orig Print D/T: S: 10/07/2019 (2007) PAGE 2 Signed ReportCBC W/O [id number] 20:02:00 Test Item Value Reference Range Interpretation Comments WHITE BLOOD CELL (test code = 8.8 K/mm3 3.5-11.0 N WBC) RED BLOOD CELL (test code = RBC) 5.02 M/mm3 4.70-6.10 N HEMOGLOBIN (test code = HGB) 15.4 G/DL 12.3-15.9 N HEMATOCRIT (test code = HCT) 45.8 % 35.8-46.7 N MEAN CELL VOLUME (test code = 91.2 Fl 86.3-98.9 N MCV) MEAN CELL HGB (test code = MCH) 30.7 pg 28.9-34.4 N MEAN CELL HGB CONCETRATION (test 33.6 G/DL 32.1-34.5 N code = MCHC) RED CELL DISTRIBUTION WIDTH (test 14.7 SD 11.5-14.5 H code = RDW) PLATELET COUNT (test code = PLT) 223.0 K/mm3 150-450 N MEAN PLATELET VOLUME (test code = 8.90 fL 7.0-9.6 N MPV)
[2021-12-07 08:12] LABS: Absolute Lymphocytes (CBC) 0.8 K/uL (0.7-4.9); RBC Red Blood Cell Count 3.88 M/uL (4.33-5.43)
[2021-12-07 08:28] LABS: Protime INR 0.95
[2021-12-07 08:46] LABS: Albumin 2.9 g/dL (3.4-5.0); Bilirubin Total 0.5 mg/dL (0.2-1.0); Potassium 4.6 mmol/L (3.5-5.1)
[2021-12-07] MEDS ORDERED: NA CHLORIDE 0.9% 1,000 ML ONE (08:50)
--- NOTE | 2021-12-07 08:57 | RAD REPORT ---
EXAM DESCRIPTION: RAD - Chest Single View - 12/07/2021 8:15 am CLINICAL HISTORY: FEVER Chest pain. COMPARISON: Chest Single View dated 07/04/2021; Chest Single View dated 07/02/2021 FINDINGS: Portable technique limits examination quality. Bilateral pulmonary opacities are present which are moderately severe likely pulmonary edema. Moderat e bilateral pleural effusions, greater on the left. The heart is mildly enlarged in size. No displace d fractures. IMPRESSION: Moderate CHF.
[2021-12-07 09:06] LABS: Arterial Blood Carboxyhemoglob 1.7 % (0-1.5); Blood Gas Oxyhemoglobin 96.2 % (94-97); Blood O2 Saturation 99.1 % (92-98.5)
--- NOTE | 2021-12-07 09:13 | EDPHYS ---
Physician Documentation [facility] Name: Chalo Benitez Age: 81 yrs Sex: Male : 1940 Arrival Date: 12/07/2021 Time: 07:22 Bed 16 Private MD: ED Physician Rosendo Sanches HPI: 12/07 08:50 This 81 yrs old Male presents to ER via EMS with complaints of Altered Mental Status. rn 08:50 The patient presents with decreased mental status, decreased responsiveness. Onset: The rn symptoms/episode began/occurred yesterday. Possible causes: unknown. Associated signs and symptoms: Pertinent positives: confusion. Current symptoms: In the emergency department the patient's symptoms are unchanged from the initial presentation. It is unknown whether or not the patient has had similar symptoms in the past. Per EMS report, called to halfway for altered mental status and decreased responsiveness. Told had fever. group home states altered mental status and not at baseline, EMS told that patient normally walks and talks normally.. Historical: - Allergies: 07:40 Codeine; ss 07:40 PENICILLINS; ss 07:40 Sulfa (Sulfonamide Antibiotics); ss - PMHx: 07:40 Atrial fibrillation; Cerebrovascular accident; COPD; GERD; Hypertensive disorder; ss Occulsion and stenosis of right carotid artery; - History obtained from: EMS. ROS: 08:50 Unable to obtain ROS due to altered mental status. rn Exam: 08:50 Constitutional: Male with altered mental status, opens eyes and grunts but speech rn incomprehensible Head/Face: Normocephalic, atraumatic. Eyes: Periorbital areas with no swelling, redness, or edema. ENT: Mucous membranes, no stridor Cardiovascular: Regular rate, irregular rhythm. Respiratory: Mild tachypnea, faint wheezing Abdomen/GI: Soft, Nontender Skin: Warm, dry MS/ Extremity: Pulses equal, no cyanosis. Neuro: Somnolent, opens eyes to voice and tactile stimulation. Not answer questions. Nonverbal. Vital Signs: 07:35 BP 123 / 59; Pulse 95; Resp 20; Pulse Ox 96% on 2 lpm NC; ss 08:30 BP 124 / 58; Pulse 89; Resp 21; Pulse Ox 100% ; ww 09:45 BP 130 / 74; Pulse 95; Resp 19; Pulse Ox 96% ; ww 10:30 BP 151 / 73; Pulse 78; Resp 21; Pulse Ox 96% ; ww 11:30 BP 141 / 88; Pulse 75; Resp 23; Pulse Ox 97% on CPAP; ww 12:42 BP 146 / 77; Pulse 75; Resp 19; Pulse Ox 100% on CPAP; ww 13:30 BP 133 / 71; Pulse 74; Resp 26; Pulse Ox 100% on CPAP; ww 14:30 BP 138 / 69; Pulse 69; Resp 18; Pulse Ox 98% ; ww 15:12 BP 175 / 83; Pulse 83; Resp 18; Pulse Ox 99% ; ww MDM: 07:30 Patient medically screened. rn 09:11 Differential Diagnosis: electrolyte abnormality, volume depletion. rn 09:12 Data reviewed: vital signs, nurses notes, lab test result(s), EKG, radiologic studies, rn plain films, and as a result, I will admit patient. Counseling: I had a detailed discussion with the patient and/or guardian regarding: the historical points, exam findings, and any diagnostic results supporting the discharge/admit diagnosis, lab results, radiology results, the need for further work-up and treatment in the hospital. Response to treatment: There is no appreciated change of the patient's symptoms at this time, and as a result, I will admit patient. Admission orders: after a detailed discussion of the patient's condition and case, the admit orders are written by me. 12/07 07:31 Order name: Blood Culture Adult (2) rn 12/07 07:31 Order name: CBC with Diff; Complete Time: 08:49 rn 12/07 07:31 Order name: CMP; Complete Time: 09:03 rn 12/07 07:31 Order name: Lactate; Complete Time: 08:49 rn 12/07 07:31 Order name: Protime (+inr); Complete Time: 08:49 rn 12/07 07:31 Order name: Ptt, Activated; Complete Time: 08:49 rn 12/07 07:31 Order name: Urine Culture rn 12/07 07:31 Order name: Urine Microscopic Only rn 12/07 07:31 Order name: Procalcitonin; Complete Time: 08:49 rn 12/07 07:41 Order name: COVID-19/FLU A+B (Document "Date of Onset" if Symptomatic); Complete Time: rn 12/07 08:50 Order name: ABG; Complete Time: 09:59 rn 12/07 10:12 Order name: Urine Dipstick-Ancillary EDMS 12/07 13:18 Order name: ABG Arterial Blood Gas EDMS 12/07 07:31 Order name: Chest Single View XRAY; Complete Time: 09:03 rn 12/07 13:18 Order name: ABG Arterial Blood Gas EDMS 12/07 13:18 Order name: CBC with Automated Diff EDMS / 13:18 Order name: CBC with Automated Diff EDMS / 13:18 Order name: Comprehensive Metabolic Panel EDMS 12/07 13:18 Order name: Comprehensive Metabolic Panel EDMS 12/07 13:18 Order name: Lactate EDMS / 13:18 Order name: Lactate EDMS / 13:18 Order name: Lipid Profile EDMS 12/07 13:18 Order name: Lipid Profile EDMS 12/07 13:18 Order name: Magnesium EDMS 12/07 13:18 Order name: Magnesium EDMS / 13:18 Order name: NT PRO-BNP EDMS 12/07 13:18 Order name: NT PRO-BNP EDMS 12/07 13:18 Order name: Phosphorus EDMS 12/07 13:18 Order name: Phosphorus EDMS 12/07 07:31 Order name: Accucheck; Complete Time: 09:09 rn 12/07 07:31 Order name: Cardiac monitoring; Complete Time: 09:09 rn 12/07 07:31 Order name: EKG - Nurse/Tech; Complete Time: 09:09 rn 12/07 07:31 Order name: IV Saline Lock - Large Bore; Complete Time: 09:09 rn 12/07 07:31 Order name: Labs collected and sent; Complete Time: 09:09 rn 12/07 07:31 Order name: O2 Per Protocol; Complete Time: 09:09 rn 12/07 07:31 Order name: O2 Sat Monitoring; Complete Time: 09:09 rn 12/07 07:31 Order name: Urine Dipstick-Ancillary (obtain specimen); Complete Time: 10:19 rn 12/07 09:12 Order name: CT Head Brain wo Cont; Complete Time: 09:59 rn 12/07 10:14 Order name: [facility] Cons EDMS 12/07 13:18 Order name: CONS Physician Consult EDMS 12/07 13:18 Order name: [facility] Healthy EDMS Administered Medications: 08:30 Drug: NS 0.9% 1000 ml Route: IV; Rate: 1000 ml; Site: left forearm; ww 12:44 Follow up: Response: No adverse reaction; IV Status: Completed infusion ww 10:00 Drug: Lasix (furosemide) 40 mg Route: IVP; Site: left forearm; ww 12:44 Follow up: Response: No adverse reaction ww Disposition Summary: 12/07/21 09:13 Hospitalization Ordered Hospitalization Status: Inpatient Admission rn Provider: Te Fitch rn Location: Telemetry/MedSurg (Inpatient) rn Condition: Stable rn Problem: new rn Symptoms: are unchanged rn Bed/Room Type: Standard rn Room Assignment: [facility](12/07/21 13:29) bd Diagnosis - Altered mental status, unspecified rn - Acute and chronic respiratory failure with hypercapnia rn - Pleural effusion, not elsewhere classified rn Forms: - Medication Reconciliation Form rn - SBAR form rn Signatures: Dispatcher [employer] EDLA Lashawn Vasquez Roman, MD MD rn Smirch, Shelby, RN RN ss Wood, Whitney, RN RN ww Corrections: (The following items were deleted from the chart) 13:29 09:13 rn bd 14:01 13:18 ABG Arterial Blood Gas ordered. [facility] EDLA
--- NOTE | 2021-12-07 09:13 | ER ---
Nurse's Notes [facility] Name: Chalo Benitez Age: 81 yrs Sex: Male : 1940 Arrival Date: 12/07/2021 Time: 07:22 Bed 16 Private MD: Diagnosis: Altered mental status, unspecified;Acute and chronic respiratory failure with hypercapnia;Pleural effusion, not elsewhere classified Presentation: 12/07 07:35 Chief complaint: EMS states: AMS and fever that began "a few days ago". Coronavirus ss screen: Client denies travel out of the [place] in the last 14 days. Client presents with at least one sign or symptom that may indicate coronavirus-19. Standard/surgical mask placed on the client. Provider contacted for isolation considerations. Ebola Screen: Patient denies exposure to infectious person. Patient denies travel to an Ebola-affected area in the 21 days before illness onset. Initial Sepsis Screen: Does the patient meet any 2 criteria? Altered Mental Status. HR > 90 bpm. Yes Does the patient have a suspected source of infection? Yes:. Risk Assessment: Do you want to hurt yourself or someone else? Patient reports no desire to harm self or others. Onset of symptoms is unknown. 07:35 Method Of Arrival: EMS: [facility] ss 07:35 Acuity: ROSSANA 2 ss Historical: - Allergies: 07:40 Codeine; ss 07:40 PENICILLINS; ss 07:40 Sulfa (Sulfonamide Antibiotics); ss - PMHx: 07:40 Atrial fibrillation; Cerebrovascular accident; COPD; GERD; Hypertensive disorder; ss Occulsion and stenosis of right carotid artery; - History obtained from: EMS. Screenin:15 Abuse screen: Denies threats or abuse. Denies injuries from another. Nutritional ww screening: No deficits noted. Tuberculosis screening: No symptoms or risk factors identified. Assessment: 07:50 General: Appears unkempt, malnourished. General: Appears ants on patients, Dr. Christina deshpande and JAMI Argueta notified. Pain: Denies pain. Neuro: Level of Consciousness is lethargic. Cardiovascular: Capillary refill is sluggish Rhythm is regular. Respiratory: Airway is patent Respiratory effort is even, unlabored, Respiratory pattern is regular, symmetrical. GI: No signs and/or symptoms were reported involving the gastrointestinal system. Abdomen is non-distended, Abd is soft and non tender. : diapered with a strong foul urine odor. Derm: Skin is fragile, is thin, Decubitus located on sacrum. 08:30 Reassessment: No changes from previously documented assessment. Patient and/or family ww updated on plan of care and expected duration. Pain level reassessed. 09:15 Reassessment: Patient appears in no apparent distress at this time. No changes from ww previously documented assessment. 10:22 General: Spoke with the director life insurance at [facility] informing them ww about the patients having ants on him and his linen. . 10:25 Reassessment: Patient appears in no apparent distress at this time. No changes from ww previously documented assessment. 12:41 Reassessment: Patient appears in no apparent distress at this time. Neuro: Level of ww Consciousness is awake, alert, fatigued. Respiratory: Airway is patent Respiratory effort is even, unlabored, patient trying to remove CPAP by putting fingers in the mask and pulling off the mask. 13:30 Reassessment: Patient appears in no apparent distress at this time. No changes from ww previously documented assessment. 15:11 Reassessment: Patient appears in no apparent distress at this time. No changes from ww previously documented assessment. Patient and/or family updated on plan of care and expected duration. Pain level reassessed. report given to Rosamaria and updated daughter. Vital Signs: 07:35 BP 123 / 59; Pulse 95; Resp 20; Pulse Ox 96% on 2 lpm NC; ss 08:30 BP 124 / 58; Pulse 89; Resp 21; Pulse Ox 100% ; ww 09:45 BP 130 / 74; Pulse 95; Resp 19; Pulse Ox 96% ; ww 10:30 BP 151 / 73; Pulse 78; Resp 21; Pulse Ox 96% ; ww 11:30 BP 141 / 88; Pulse 75; Resp 23; Pulse Ox 97% on CPAP; ww 12:42 BP 146 / 77; Pulse 75; Resp 19; Pulse Ox 100% on CPAP; ww 13:30 BP 133 / 71; Pulse 74; Resp 26; Pulse Ox 100% on CPAP; ww 14:30 BP 138 / 69; Pulse 69; Resp 18; Pulse Ox 98% ; ww 15:12 BP 175 / 83; Pulse 83; Resp 18; Pulse Ox 99% ; ww ED Course: 07:22 Patient arrived in ED. ss 07:30 Rosendo Sanches MD is Attending Physician. rn 07:40 Triage completed. ss 07:40 Arm band placed on right wrist. ss 07:49 Ellie Philip, JAMI is Primary Nurse. ss 08:00 Patient has correct armband on for positive identification. Placed in gown. Bed in low ww position. Call light in reach. Side rails up X2. Client placed on continuous cardiac and pulse oximetry monitoring. NIBP monitoring applied. 08:00 Inserted saline lock: 22 gauge in left forearm, using aseptic technique. Blood ww collected. 08:16 Chest Single View XRAY In Process Unspecified. EDMS 09:12 Te Fitch MD is Hospitalizing Provider. rn 09:41 CT Head Brain wo Cont In Process Unspecified. EDMS 15:15 No provider procedures requiring assistance completed. ww Administered Medications: 08:30 Drug: NS 0.9% 1000 ml Route: IV; Rate: 1000 ml; Site: left forearm; ww 12:44 Follow up: Response: No adverse reaction; IV Status: Completed infusion ww 10:00 Drug: Lasix (furosemide) 40 mg Route: IVP; Site: left forearm; ww 12:44 Follow up: Response: No adverse reaction ww Outcome: 09:13 Decision to Hospitalize by Provider. rn 15:18 Admitted to Med/surg accompanied by tech, via stretcher, room 215, with oxygen, with ww chart, Report called to rosamaria 15:18 Condition: stable 15:18 Instructed on the need for admit. 15:18 Patient left the ED. ww Signatures: Dispatcher [employer] EDMS Rosendo Sanches MD MD rn Smirch, Shelby, JAMI RN Krystal Kendrick RN RN charlee
[2021-12-07 09:49] LABS: SARS-COV-2 RT PCR NEGATIVE (NEGATIVE)
--- NOTE | 2021-12-07 09:53 | RAD REPORT ---
EXAM DESCRIPTION: CT - Head Brain Wo Cont - 12/07/2021 9:39 am CLINICAL HISTORY: AMS, respiratory depression Headache, drowsiness COMPARISON: No comparisons TECHNIQUE: All CT scans are performed using dose optimization technique as appropriate and may inclu de automated exposure control or mA/KV adjustment according to patient size. FINDINGS: No intracranial hemorrhage, hydrocephalus or extra-axial fluid collection.Moderate general ized brain atrophy.No areas of brain edema or evidence of midline shift. The paranasal sinuses and mastoids are clear. The calvarium is intact. IMPRESSION: No acute intracranial abnormality.
[2021-12-07 10:12] LABS: Urine Blood 1+ (Negative); Urine Glucose Negative (Negative); Urine Protein 1+ (Negative); Urine Specific Gravity >=1.030 (1.005-1.030); Urine pH 5.5 (5.0-7.0)
[2021-12-07] MEDS ORDERED: FUROSEMIDE 40 MG/4 ML VIAL ONE (10:18)
[2021-12-07 10:31] LABS: Urine Bacteria 20-50 /HPF (NONE SEEN)
[2021-12-07 10:32] LABS: Urine Mucus 1+ /HPF (NONE SEEN)
[2021-12-07] MEDS ORDERED: ONDANSETRON 4 MG/2 ML VIAL IV PRN (13:13)
[2021-12-07] MEDS ORDERED: ACETAMINOPHEN 500 MG TAB PO PRN (13:13)
[2021-12-07] MEDS: ALBUTEROL 2.5 MG/3 ML NEB SOL NEB SCH ×2 (14:00→20:15)
[2021-12-07] MEDS: IPRATROPIUM BROM 0.5MG/2.5ML NEB SCH ×2 (14:00→20:15)
[2021-12-07] MEDS ORDERED: Levofloxacin 750mg IV 750 MG/150 ML BAG IV ONE (17:00)
[2021-12-07] MEDS: METHYLPREDNISOLONE 125 MG INJ IV SCH ×2 (18:04→22:41)
[2021-12-08 00:45] VITALS: BMI 18.9
[2021-12-08] MEDS: IPRATROPIUM BROM 0.5MG/2.5ML NEB SCH ×4 (01:45→19:45)
[2021-12-08] MEDS: ALBUTEROL 2.5 MG/3 ML NEB SOL NEB SCH ×4 (01:45→19:45)
[2021-12-08 05:09] LABS: Absolute Lymphocytes (CBC) 0.2 K/uL (0.7-4.9); Hematocrit 29.8 % (39.6-49.0); Lymphocytes % 3.9 % (15.3-44.8)
[2021-12-08 05:33] LABS: Blood Morphology Comment NOT SEEN (NOT SEEN); Platelet Estimate ADEQ
[2021-12-08 05:38] LABS: ALT/SGPT 16 U/L (12-78); AST/SGOT 24 U/L (15-37); Albumin 2.6 g/dL (3.4-5.0); Alkaline Phosphatase 107 U/L (45-117); BUN Blood Urea Nitrogen 34 mg/dL (7-18); Bilirubin Total 0.3 mg/dL (0.2-1.0); Glucose Level 136 mg/dL (74-106); HDL Cholesterol 49 mg/dL (40-60); LDL Cholesterol, Calculated 77 mg/dL (<130); Magnesium 2.4 mg/dL (1.8-2.4); NT PRO-BNP 1758 pg/mL (<450); Phosphorus 2.6 mg/dL (2.5-4.9); Potassium 4.3 mmol/L (3.5-5.1); Protein, Total 6.2 g/dL (6.4-8.2); Sodium Level 144 mmol/L (136-145)
[2021-12-08 05:40] LABS: Bicarbonate 41 mmol/L (21-32)
[2021-12-08] MEDS: METHYLPREDNISOLONE 125 MG INJ IV SCH ×2 (06:18→15:18)
[2021-12-08] MEDS: RISPERIDONE 1 MG TABLET PO SCH ×2 (09:00→21:20)
[2021-12-08] MEDS: NA CHLORIDE 0.9% 1,000 ML IV SCH ×2 (09:33→16:40)
[2021-12-08] MEDS: ENOXAPARIN 40 MG/0.4 ML SQ SCH (09:33)
[2021-12-08] MEDS: COLLAGENASE 30 GM OINTMENT TOP SCH (09:34)
--- NOTE | 2021-12-08 12:57 | EKG ---
Test Date: 2021-12-07 Test Time: 07:40:33 Side Laster Tack: JAILYN MEASUREMENT RESULTS: Intervals: Rate: 98 WA: QRSD: 90 QT: 328 QTc: 418 [place]: P: WA: QRS: -7 T: -77 INTERPRETIVE STATEMENTS: Atrial fibrillation Septal infarct, age undetermined Abnormal ECG Compared to ECG 07/02/2021 08:51:31 Ventricular premature complex(es) no longer present Myocardial infarct finding still present Electronically Signed On 12-08-21 12:52:25 CDT by Jeb Waggoner
[2021-12-08] MEDS: VANCOMYCIN 1.25 GM in NA CHLORIDE 0.9% 250 ML IVPB SCH (14:00)
--- NOTE | 2021-12-08 15:18 | P.CNS ---
Date of Consult: 12/08/21 Reason for Consult: Resp failure Chief Complaint: Altered mental status History of Present Illness: Patient is 81 years of age very poor historian agitated admitted from the senior living with altered mental status hypoxic hypercapnic respiratory failure refusing BiPAP Allergies codeine Allergy (Verified 07/02/21 15:06) Rash Penicillins Allergy (Verified 07/02/21 15:06) Rash Sulfa (Sulfonamide Antibiotics) Allergy (Verified 07/02/21 15:06) Rash Home Medications: Clopidogrel Bisulfate [Plavix*] 75 mg PO DAILY 07/02/21 Furosemide [Lasix*] 20 mg PO BIDL 07/02/21 Metoprolol Tartrate [Lopressor] 50 mg PO BID 07/02/21 Pantoprazole [Protonix Tab*] 40 mg PO DAILY 07/02/21 Albuterol Neb [Proventil 0.083% Neb Soln] 2.5 mg NEB [id number] #60 amp 07/08/21 Ensure Enlive 237 ml PO BID #60 can 07/08/21 Fludrocortisone [Florinef *] 0.1 mg PO DAILY #30 tab 07/08/21 Ipratropium Neb [Atrovent*] 0.5 mg NEB [id number] #60 amp 07/08/21 Azeem [Azeem*] 1 pkt PO BID #60 powd.pack 07/08/21 Lisinopril [Zestril] 10 mg PO DAILY #30 tablet 07/08/21 levoFLOXacin [Levaquin*] 500 mg PO DAILY #5 tab 07/08/21 predniSONE [Prednisone*] 20 mg PO BID #20 tab 07/08/21 - Past Medical/Surgical History -: Hypertension -: Carotid artery stenosis -: History of stroke -: COPD - Family History Father Family History: Reviewed- Non-Contributory - Social History Smoking Status: Current every day smoker, Current some day smoker Alcohol use: Yes CD- Drugs: No Caffeine use: Yes Review of Systems is unable to be obtained Physical Examination Temp Pulse Resp BP Pulse Ox 98.8 F 83 16 114/68 100 12/08/21 08:00 12/08/21 12:00 12/08/21 12:00 12/08/21 12:00 12/08/21 12:00 General: Moderate distress Respiratory: Clear to auscultation bilaterally, Diminished, Expiratory wheezes Cardiovascular: No edema, Regular rate/rhythm Gastrointestinal: Normal bowel sounds, Soft and benign - Problems (1) Respiratory failure with hypercapnia Current Visit: Yes Status: Acute Plan: Patient is 81 years of age with presumed COPD admitted with respiratory failure suspect acute on chronic labs reviewed chest x-ray shows bilateral pleural effusions which are chronic cardiomegaly no evidence of sepsis can DC vancomycin for now blood cultures most likely contaminant patient has refused BiPAP he is refusing therapy plan to discharge back to the senior living echocardiogram shows normal left ventricular function changed to p.o. levofloxacin and prednisone DC IV fluids for now add low-dose Diamox Qualifiers: Chronicity: acute on chronic Qualified Code(s): J96.22 - Acute and chronic respiratory failure with hypercapnia
[2021-12-08] MEDS ORDERED: Levofloxacin 750mg IV 750 MG/150 ML BAG IV SCH (17:00)
[2021-12-08] MEDS ORDERED: METHYLPREDNISOLONE 40 MG INJ IV SCH (21:00)
[2021-12-08] MEDS: JUVEN PACKET PO SCH (21:21)
[2021-12-08] MEDS: HALOPERIDOL LACT 5 MG/ML INJ IV PRN (23:43)
[2021-12-09] MEDS: IPRATROPIUM BROM 0.5MG/2.5ML NEB SCH ×4 (01:45→20:00)
[2021-12-09] MEDS: ALBUTEROL 2.5 MG/3 ML NEB SOL NEB SCH ×4 (01:45→20:00)
[2021-12-09] MEDS: NA CHLORIDE 0.9% 1,000 ML IV SCH (02:51)
--- NOTE | 2021-12-09 08:22 | P.HP ---
Certification for Inpatient Patient admitted to: Inpatient With expected LOS: >2 Midnights Patient will require the following post-hospital care: None Practitioner: I am a practitioner with admitting privileges, knowledge of patient current condition, hospital course, and medical plan of care. Services: Services provided to patient in accordance with Admission requirements found in Title 42 Section 412.3 of the Code of Federal Regulations Patient History Date of Service: 12/07/21 Reason for admission: Acute COPD exacerbation Allergies codeine Allergy (Verified 07/02/21 15:06) Rash Penicillins Allergy (Verified 07/02/21 15:06) Rash Sulfa (Sulfonamide Antibiotics) Allergy (Verified 07/02/21 15:06) Rash Home Medications: Clopidogrel Bisulfate [Plavix*] 75 mg PO DAILY 07/02/21 Furosemide [Lasix*] 20 mg PO BIDL 07/02/21 Metoprolol Tartrate [Lopressor] 50 mg PO BID 07/02/21 Pantoprazole [Protonix Tab*] 40 mg PO DAILY 07/02/21 Albuterol Neb [Proventil 0.083% Neb Soln] 2.5 mg NEB [id number] #60 amp 07/08/21 Ensure Enlive 237 ml PO BID #60 can 07/08/21 Fludrocortisone [Florinef *] 0.1 mg PO DAILY #30 tab 07/08/21 Ipratropium Neb [Atrovent*] 0.5 mg NEB [id number] #60 amp 07/08/21 Azeem [Azeem*] 1 pkt PO BID #60 powd.pack 07/08/21 Lisinopril [Zestril] 10 mg PO DAILY #30 tablet 07/08/21 levoFLOXacin [Levaquin*] 500 mg PO DAILY #5 tab 07/08/21 predniSONE [Prednisone*] 20 mg PO BID #20 tab 07/08/21 - Past Medical/Surgical History -: Hypertension -: Carotid artery stenosis -: History of stroke -: Pulmonary fibrosis Past Surgical History: Patient denies surgical history - Family History Father Family History: Reviewed- Non-Contributory - Social History Smoking Status: Former smoker Alcohol use: Yes CD- Drugs: No Caffeine use: Yes Review of Systems 10-point ROS is otherwise unremarkable Physical Examination - Vital Signs Temperature: 97.5 F Blood Pressure: 119/60 Pulse: 80 Respirations: 20 Pulse Ox (%): 96 - Physical Exam General: Alert, In no apparent distress, Oriented x3 HEENT: Atraumatic, PERRLA, Mucous membr. moist/pink, EOMI, Sclerae nonicteric Neck: Supple, 2+ carotid pulse no bruit, No LAD, Without JVD or thyroid abnormality Respiratory: Diminished, Expiratory wheezes Cardiovascular: Regular rate/rhythm, Normal S1 S2, No murmurs Gastrointestinal: Normal bowel sounds, Soft and benign, Non-distended, No tenderness Musculoskeletal: No clubbing, No swelling, No tenderness Integumentary: No rashes Neurological: Normal gait, Normal speech, Normal strength at 5/5 x4 extr, Normal tone, Sensation intact, Cranial nerves 3-12 intact, Normal affect Lymphatics: No axilla or inguinal lymphadenopathy - Studies Microbiology Data (last 24 hrs): 12/07/21 08:20 Blood - Blood Blood Culture Gram Stain - Final 12/07/21 08:20 Blood - Blood Gram Stain - Final Assessment & Plan - Problems (Diagnosis) (1) COPD with acute exacerbation Current Visit: Yes Status: Acute (2) Congestive heart failure Current Visit: No Status: Acute (3) Generalized weakness Current Visit: No Status: Acute (4) Shortness of breath Current Visit: No Status: Acute (5) CVA (cerebral vascular accident) Current Visit: Yes Status: Acute (6) Carotid artery stenosis Current Visit: Yes Status: Acute - Plan Plan: 1. Continue with albuterol and Atrovent nebs 2. Continue with IV steroids 3. BIPAP support 4. Pulmonary follow-up if symptoms do not improve 5. Room air O2 sats 6. Repeat chest x-ray in the morning 7. DNR 8. GI and DVT prophylaxis Discharge Plan: Home Plan to discharge in: Greater than 2 days - Advance Directives Does patient have a Living Will: No Does patient have a Durable POA for Healthcare: No - Code Status/Comfort Care Code Status Assessed: Yes Code Status: Full Code Critical Care: No Time Spent Managing PTS Care (In Minutes): 45
--- NOTE | 2021-12-09 08:24 | P.PN ---
Subjective Date of Service: 12/08/21 Subjective: Improving Review of Systems 10-point ROS is otherwise unremarkable Physical Examination - Vital Signs Temperature: 97.5 F Blood Pressure: 119/60 Pulse: 80 Respirations: 20 Pulse Ox (%): 96 - Physical Exam General: Alert, In no apparent distress, Demented Respiratory: Diminished, Expiratory wheezes Cardiovascular: Regular rate/rhythm, Normal S1 S2, No murmurs Gastrointestinal: Normal bowel sounds, Soft and benign, Non-distended, No tenderness Musculoskeletal: No clubbing, No swelling, No tenderness Neurological: Sensation intact, Cranial nerves 3-12 intact - Studies Microbiology Data (last 24 hrs): 12/07/21 08:20 Blood - Blood Blood Culture Gram Stain - Final 12/07/21 08:20 Blood - Blood Gram Stain - Final Medications List Reviewed: Yes Assessment & Plan - Problems (Diagnosis) (1) COPD with acute exacerbation Current Visit: Yes Status: Acute (2) Congestive heart failure Current Visit: No Status: Acute (3) Generalized weakness Current Visit: No Status: Acute (4) Shortness of breath Current Visit: No Status: Acute (5) CVA (cerebral vascular accident) Current Visit: Yes Status: Acute (6) Carotid artery stenosis Current Visit: Yes Status: Acute - Plan Plan: 1. Continue with Brovana and Atrovent nebs 2. Continue with IV steroids 3. BIPAP support; cont antibiotics 4. Pulmonary consultation; 5. Room air O2 sats 6. Repeat chest x-ray in the morning 7. DNR; d/w family re: hospice care 8. GI and DVT prophylaxis Discharge Plan: Home Plan to discharge in: Greater than 2 days - Advance Directives Does patient have a Living Will: No Does patient have a Durable POA for Healthcare: No - Code Status/Comfort Care Code Status: Full Code Critical Care: No Time Spent Managing PTS Care (In Minutes): 35
[2021-12-09] MEDS: predniSONE 20 MG TAB PO SCH ×2 (09:50→21:44)
[2021-12-09] MEDS: acetaZOLAMIDE 250 MG TAB PO SCH (09:52)
[2021-12-09] MEDS: levoFLOXacin 750 MG TAB PO SCH (09:53)
[2021-12-09] MEDS: RISPERIDONE 1 MG TABLET PO SCH ×2 (09:58→21:44)
[2021-12-09] MEDS: HALOPERIDOL LACT 5 MG/ML INJ IV PRN (09:58)
[2021-12-09] MEDS: JUVEN PACKET PO SCH ×2 (10:11→21:00)
[2021-12-09] MEDS: ENOXAPARIN 40 MG/0.4 ML SQ SCH (12:02)
[2021-12-09] MEDS: VANCOMYCIN 1.25 GM in NA CHLORIDE 0.9% 250 ML IVPB SCH (14:48)
[2021-12-09] MEDS: COLLAGENASE 30 GM OINTMENT TOP SCH (17:10)
[2021-12-10] MEDS: IPRATROPIUM BROM 0.5MG/2.5ML NEB SCH ×2 (01:00→08:00)
[2021-12-10] MEDS: ALBUTEROL 2.5 MG/3 ML NEB SOL NEB SCH ×2 (01:00→08:00)
[2021-12-10] MEDS: HALOPERIDOL LACT 5 MG/ML INJ IV PRN ×2 (01:02→05:59)
[2021-12-10 02:58] VITALS: O2SAT 98
[2021-12-10 05:47] LABS: Absolute Lymphocytes (CBC) 0.2 K/uL (0.7-4.9); Hematocrit 33.9 % (39.6-49.0); Lymphocytes % 5.9 % (15.3-44.8); MPV 7.3 fL (7.6-11.3); RBC Red Blood Cell Count 3.72 M/uL (4.33-5.43)
[2021-12-10 06:08] LABS: BUN Blood Urea Nitrogen 32 mg/dL (7-18); Bicarbonate 35 mmol/L (21-32); Glucose Level 140 mg/dL (74-106); Magnesium 2.1 mg/dL (1.8-2.4); NT PRO-BNP 3619 pg/mL (<450); Phosphorus 2.1 mg/dL (2.5-4.9); Potassium 3.7 mmol/L (3.5-5.1); Sodium Level 141 mmol/L (136-145)
--- NOTE | 2021-12-10 07:10 | RAD REPORT ---
EXAM DESCRIPTION: RAD - Chest Single View - 12/10/2021 5:37 am CLINICAL HISTORY: pneumonia COMPARISON: Chest Single View dated 12/07/2021; Chest Single View dated 07/04/2021; Chest Single View dated 07/02/2021 FINDINGS: Lines: None. Lungs: Widespread pulmonary opacities. Pleural: Moderate bilateral pleural effusions. Cardiac: Cardiomegaly. Bones: No acute fractures. Other: IMPRESSION: Similar moderate congestive heart failure.
[2021-12-10] MEDS ORDERED: POTASSIUM PHOS IN 0.9 % NACL 15 MMOL/250 ML BAG IV ONE (08:00)
--- NOTE | 2021-12-10 08:47 | P.PN ---
Date of Service: 12/09/21 Subjective Subjective: More awake and alert; have been talking with family and they are agreeable to hospice; daughters are both agreeable Review of Systems 10-point ROS is otherwise unremarkable Physical Examination - Vital Signs reviewed - Physical Exam General: Alert, In no apparent distress, Demented Respiratory: Diminished, Expiratory wheezes Cardiovascular: Regular rate/rhythm, Normal S1 S2, No murmurs Gastrointestinal: Normal bowel sounds, Soft and benign, Non-distended, No te nderness Musculoskeletal: No clubbing, No swelling, No tenderness Neurological: Sensation intact, Cranial nerves 3-12 intact Assessment & Plan - Problems (Diagnosis) (1) COPD with acute exacerbation Current Visit: Yes Status: Acute (2) Congestive heart failure Current Visit: No Status: Acute (3) Generalized weakness Current Visit: No Status: Acute (4) Shortness of breath Current Visit: No Status: Acute (5) CVA (cerebral vascular accident) Current Visit: Yes Status: Acute (6) Carotid artery stenosis Current Visit: Yes Status: Acute - Plan Plan: 1. Continue with Brovana and Atrovent nebs 2. Continue with IV steroids 3. BIPAP support at rest; cont antibiotics 4. DNR; d/w family re: hospice care; agreeable 5. Room air O2 sats 6. Repeat chest x-ray in the morning 7. GI and DVT prophylaxis Discharge Plan: Home Plan to discharge in: Greater than 2 days - Advance Directives Does patient have a Living Will: No Does patient have a Durable POA for Healthcare: No - Code Status/Comfort Care Code Status: Full Code Critical Care: No Time Spent Managing PTS Care (In Minutes): 35
[2021-12-10] MEDS: JUVEN PACKET PO SCH (09:00)
[2021-12-10] MEDS: predniSONE 20 MG TAB PO SCH (09:00)
[2021-12-10] MEDS: COLLAGENASE 30 GM OINTMENT TOP SCH (09:00)
[2021-12-10] MEDS: levoFLOXacin 750 MG TAB PO SCH (09:00)
[2021-12-10] MEDS: RISPERIDONE 1 MG TABLET PO SCH (09:00)
[2021-12-10] MEDS: acetaZOLAMIDE 250 MG TAB PO SCH (09:00)
[2021-12-10] MEDS: ENOXAPARIN 40 MG/0.4 ML SQ SCH (09:25)
[2021-12-10 09:30] VITALS: TEMP 97.2
[2021-12-10 13:07] VITALS: BP 118/62
== END 2021-12-10 12:30 | disposition hospice, inpatient (51) | DRG 190 ==
LOC: ER 07:22 → ERHOLD 13:13 → 2ND 14:59
PROVIDERS: ADMIT Hospitalist; ATTEND Hospitalist
DX: J44.1 Chronic obstructive pulmonary disease with (acute) exacerbation (principal); J96.22 Acute and chronic respiratory failure with hypercapnia; E43 Unspecified severe protein-calorie malnutrition; G93.41 Metabolic encephalopathy; I50.31 Acute diastolic (congestive) heart failure; Z68.1 Body mass index [BMI] 19.9 or less, adult; I48.91 Unspecified atrial fibrillation; I65.29 Occlusion and stenosis of unspecified carotid artery; I11.0 Hypertensive heart disease with heart failure; L89.150 Pressure ulcer of sacral region, unstageable; N15.9 Renal tubulo-interstitial disease, unspecified; Z86.73 Personal history of transient ischemic attack (TIA), and cerebral infarction without residual deficits; Z88.2 Allergy status to sulfonamides; Z87.891 Personal history of nicotine dependence; Z88.0 Allergy status to penicillin; Z20.822 Contact with and (suspected) exposure to COVID-19
CPT/HCPCS: 0240U; 36415; 70450; 71045; 80048; 80053; 80061; 81003; 81015; 82805; 83605; 83735; 83880; 84100; 84145; 85025; 85610; 85730; 87040; 87077; 87086; 87088; 87186; 87205; 93005; 94660; 94760; 96361; 96374; 99251; 99285; J1630; J1650; J1940; J2920; J2930; J3370; J3590; J7030; J7050; J7512